=== PATIENT | male | born 1985 | race Caucasian/White ===

== ENCOUNTER 2017-10-21 09:37 | Emergency (ER) | payer OTHER ==
[2017-10-21 09:51] VITALS: BP 133/91; PULSE 60; O2SAT 99
--- NOTE | 2017-10-21 09:55 | ERPHSYRPT ---
- History of Present Illness Time Seen by Provider: 10/21/17 09:46 Source: patient, family Exam Limitations: no limitations Physician History: The patient is a 32-year-old male with his complaining that he fell about 4 feet off a ladder 2 weeks ago onto his left rib cage. He thinks he fell onto a pile of boards. His left rib cages been hurting ever since but now it is beginning to hurt more. It hurts to take a deep breath or cough. He's been taking ibuprofen without relief. He was not able to go into work today because of the pain. His past medical history is unremarkable. Occurred: other (2 weeks) Reason for Fall: lost balance, fell from height Injuries/Pain Location: chest (left side) Loss of Consciousness: no loss of consciousness Quality: sharpness Severity of Pain-Max: moderate Severity of Pain-Current: moderate Modifying Factors: Improves With: pain medication (ibuprofen) Associated Symptoms (Fall): chest pain Allergies/Adverse Reactions: No Known Drug Allergies Allergy (Verified 10/21/17 09:50) Home Medications: Carvedilol 3.125 mg [Coreg 3.125 MG] 3.125 mg PO DAILY 10/21/17 [History] Escitalopram Oxalate 10 mg [Lexapro 10 MG] 10 mg PO DAILY 10/21/17 [History] Lisinopril 10 mg [Zestril 10 MG] 10 mg PO DAILY 10/21/17 [History] Hx Tetanus, Diphtheria Vaccination/Date Given: No Hx Influenza Vaccination/Date Given: No Hx Pneumococcal Vaccination/Date Given: No - Review of Systems Constitutional: No Fever, No Chills Eyes: No Symptoms Ears, Nose, & Throat: No Symptoms Respiratory: No Cough, No Dyspnea Cardiac: Chest Pain Abdominal/Gastrointestinal: No Abdominal Pain, No Nausea, No Vomiting, No Diarrhea Genitourinary Symptoms: No Dysuria Musculoskeletal: No Back Pain, No Neck Pain Skin: No Rash Neurological: No Dizziness, No Focal Weakness, No Sensory Changes Psychological: No Symptoms Endocrine: No Symptoms Hematologic/Lymphatic: No Symptoms Immunological/Allergic: No Symptoms All Other Systems: Reviewed and Negative - Past Medical History Pertinent Past Medical History: Yes Psycho-Social History: Depression - Past Surgical History Past Surgical History: No - Social History Smoking Status: Current every day smoker Exposure to second hand smoke: No Patient Lives Alone: No - Nursing Vital Signs Nursing Vital Signs: Initial Vital Signs Pulse Rate 60 10/21/17 09:46 Respiratory Rate 18 10/21/17 09:46 Blood Pressure 133/91 10/21/17 09:46 O2 Sat by Pulse Oximetry 99 10/21/17 09:46 Pain Scale Pain Intensity 7 - [place] Coma Score Best Eye Response ([place]): (4) open spontaneously Best Verbal Response ([place]): (5) oriented Best Motor Response ([place]): (6) obeys commands Anisha Total: 15 - Physical Exam General Appearance: no apparent distress, alert Head Injury: no evidence of injury Eye Exam: PERRL/EOMI ENT Exam: airway nml Neck Exam: normal inspection, No tenderness Respiratory/Chest Exam: chest tenderness (left lateral ribs), rib tenderness ( left lateral) Cardiovascular Exam: normal heart sounds, regular rate/rhythm Gastrointestinal Exam: soft, No tenderness, No distention, No guarding, No ecchymosis Rectal Exam: not done Back Exam: normal inspection, No vertebral tenderness Extremity Exam: normal inspection, normal range of motion, pelvis stable, No deformities Neurologic Exam: alert, oriented x 3, cooperative, sensation nml, No motor deficits Skin Exam: normal color, warm, dry, No ecchymosis SpO2 Interpretation: normal - Radiology Exams Left Chest X-ray Interpretation: Reviewed by me, Teleradiologist Report (per Dr Meraz), Non- displaced Fracture (tiny lateral 5/6/7 corical rib fractures.) Chest X-ray Interpretation: Reviewed by me, Teleradiologist Report (per Dr Meraz), Other (left rib fractures reported under left rib xray.) Ordered Tests: Active Orders 24 hr Category Date Time Status CHEST 2 VIEWS (PA AND LAT) Stat Exams 10/21/17 09:55 Taken RIBS UNILATERAL Stat Exams 10/21/17 09:55 Completed Medication Summary Discontinued Medications Generic Name Dose Route Start Last Admin Trade Name Freq PRN Reason Stop Dose Admin Ketorolac Tromethamine 60 mg 10/21/17 09:55 10/21/17 10:07 Toradol 30 Mg Injection IM 10/21/17 09:56 60 mg STAT ONE Administration Ketorolac Tromethamine Confirm 10/21/17 10:04 Toradol 30 Mg Injection Administered 10/21/17 10:05 Dose 60 mg .ROUTE .STK-MED ONE - Progress Progress: unchanged Counseled pt/family regarding: diagnosis, rad results - Departure Time of Disposition: 10:57 Departure Disposition: Home Clinical Impression: Multiple fractures of ribs of left side Condition: Stable Critical Care Time: No Referrals: DAVID MURPHY MD [Primary Care Provider] - Additional Instructions: You have fractures of 3 left ribs. You were given Toradol 60 mg by IM in the ER. Take naproxen 500 mg 2 times a day as needed for pain. May also take Tylenol 1000 mg every 8 hours as needed. Avoid trauma to the left rib area until healed. Follow-up with your primary medical doctor as needed. Prescriptions: Naproxen 500 mg PO BID PRN #30 tablet.
[2017-10-21] MEDS ORDERED: TORAdol 30 mg Injection ONE (10:04)
[2017-10-21] MEDS: TORAdol 30 mg Injection IM ONE (10:07)
--- NOTE | 2017-10-21 10:48 | XRAY ---
Indication: Left lower rib pain following fall 2 weeks ago. Comparison: None 2 views of the left ribs demonstrates tiny lateral 5/6/7 cortical rib fractures. No other bony, articular, or soft tissue abnormalities.
--- NOTE | 2017-10-21 10:50 | XRAY ---
Indication: Left lower rib pain following fall 2 weeks ago. Comparison: October 07, 2017. PA/lateral chest again demonstrates normal heart and lungs. Bony thorax grossly intact with left rib fractures reported separately.
== END 2017-10-21 11:13 | disposition home or self-care (01) ==
LOC: ED 09:37
DX: S22.42XA Multiple fractures of ribs, left side, initial encounter for closed fracture (principal); W11.XXXA Fall on and from ladder, initial encounter; F32.9 Major depressive disorder, single episode, unspecified; Z72.0 Tobacco use; Z79.899 Other long term (current) drug therapy
CPT/HCPCS: 71046; 71100; 96372; 99284; J1885

== ENCOUNTER 2018-04-05 16:52 | Emergency (ER) | payer OTHER ==
[2018-04-05 17:13] VITALS: O2SAT 98
[2018-04-05] MEDS ORDERED: TORAdol 30 mg Injection IM ONE (17:41)
[2018-04-05] MEDS ORDERED: Norflex 60 MG/2 ML IM ONE (17:41)
--- NOTE | 2018-04-05 17:45 | ERPHSYRPT ---
- History of Present Illness Time Seen by Provider: 04/05/18 17:37 Source: patient Exam Limitations: no limitations Patient Subjective Stated Complaint: states lower back began hurting when he got out of the shower at 1500 today. denies any injury. states pain radiates down both legs at times. Triage Nursing Assessment: ambulated to room per self holding lower back. skin w/d, color normal. Physician History: 32-year-old white male with history of depression high blood pressure and has a history of degenerative disc disease in the past. Arrives with complaint of pain in his low back radiating across the entire low back which began when the patient got out of the shower this afternoon. Patient denies any injury. Past medical history includes depression, high blood pressure Past surgical history includes orthopedic surgery on the right shoulder Timing/Duration: today Method of Injury: other (getting out of the shower) Quality: aching Back Pain Location: lumbar spine Back Pain Radiation: buttocks, upper legs Severity of Pain-Max: moderate Severity of Pain-Current: moderate Modifying Factors: Improves With: nothing Associated Symptoms: lower back pain, No fever, No chills, No sweating, No urinary incontinence, No loss of bowel control, No constipation, No nausea, No vomiting, No problems urinating, No light-headedness, No dizziness, No numbness in legs/feet, No weakness, No sensory/motor loss, No tingling in legs/feet, No muscle spasms Previous symptoms: same symptoms as today Allergies/Adverse Reactions: No Known Drug Allergies Allergy (Verified 10/21/17 09:50) Home Medications: Carvedilol 3.125 mg [Coreg 3.125 MG] 3.125 mg PO DAILY 10/21/17 [History] Escitalopram Oxalate 10 mg [Lexapro 10 MG] 10 mg PO DAILY 10/21/17 [History] Lisinopril 10 mg [Zestril 10 MG] 10 mg PO DAILY 10/21/17 [History] Hx Tetanus, Diphtheria Vaccination/Date Given: Yes Hx Influenza Vaccination/Date Given: Yes Hx Pneumococcal Vaccination/Date Given: No - Review of Systems Constitutional: No Fever, No Chills Eyes: No Symptoms Ears, Nose, & Throat: No Symptoms Respiratory: No Cough, No Dyspnea Cardiac: No Chest Pain, No Edema, No Syncope Abdominal/Gastrointestinal: No Abdominal Pain, No Nausea, No Vomiting, No Diarrhea Genitourinary Symptoms: No Dysuria Musculoskeletal: Back Pain Skin: No Rash Neurological: No Dizziness, No Focal Weakness, No Sensory Changes Psychological: No Symptoms Endocrine: No Symptoms All Other Systems: Reviewed and Negative - Past Medical History Pertinent Past Medical History: Yes Psycho-Social History: Depression - Past Surgical History Past Surgical History: Yes Musculoskeletal: Orthopedic Surgery Other Surgical History: right shoulder - Social History Smoking Status: Current every day smoker How long have you smoked: 16 Exposure to second hand smoke: No Drug Use: none Patient Lives Alone: No - Nursing Vital Signs Nursing Vital Signs: Initial Vital Signs Temperature 98.4 F 04/05/18 16:57 Pulse Rate 69 04/05/18 16:57 Respiratory Rate 16 04/05/18 16:57 Blood Pressure 122/77 04/05/18 16:57 O2 Sat by Pulse Oximetry 98 04/05/18 16:57 Pain Scale Pain Intensity [] 10 Pain Intensity 6 - Physical Exam General Appearance: mild distress Eye Exam: PERRL/EOMI, eyes nml inspection Ears, Nose, Throat Exam: normal ENT inspection, TMs normal, pharynx normal, moist mucous membranes, No dry mucous membranes, No TM abnormal (R), No TM abnormal (L), No pharyngeal erythema Neck Exam: normal inspection, non-tender, supple, full range of motion, No meningismus, No midline tenderness Respiratory Exam: normal breath sounds, lungs clear, No respiratory distress Cardiovascular Exam: regular rate/rhythm, normal heart sounds Gastrointestinal Exam: soft, No tenderness, No mass Back Exam: other (piggyback clerk with movement and palpation low lumbar region) Extremity Exam: normal inspection, normal range of motion, No calf tenderness, No pedal edema Peripheral Pulses: dorsalis-pedis (R): 2+, dorsalis-pedis (L): 2+ Neurologic Exam: alert, oriented x 3, cooperative, network cabler II-XII nml as tested, normal mood/affect, nml station & gait, sensation nml, No motor deficits Skin Exam: normal color, warm, dry, No rash SpO2 Interpretation: normal (98%) SpO2: 98 - Course Nursing assessment & vital signs reviewed: Yes - Radiology Exams L-Spine X-ray Interpretation: Interpreted by me (straightening of lumbar spine, no fractures, no subluxation) Ordered Tests: Active Orders 24 hr Category Date Time Status IV Insertion STAT Care 04/05/18 18:45 Active LUMBAR LIMITED (2 OR 3 VIEWS) Stat Exams 04/05/18 17:41 Taken Medication Summary Discontinued Medications Generic Name Dose Route Start Last Admin Trade Name Maximilianq PRN Reason Stop Dose Admin Ketorolac Tromethamine 60 mg 04/05/18 17:41 04/05/18 17:50 Toradol 30 Mg Injection IM 04/05/18 17:42 60 mg STAT ONE Administration Ketorolac Tromethamine Confirm 04/05/18 17:47 Toradol 30 Mg Injection Administered 04/05/18 17:48 Dose 60 mg .ROUTE .STK-MED ONE Morphine Sulfate 4 mg 04/05/18 18:45 04/05/18 18:53 Morphine Sulfate 4 Mg Inj IV 04/05/18 18:46 4 mg STAT ONE Administration Morphine Sulfate Confirm 04/05/18 18:49 Morphine Sulfate 4 Mg Inj Administered 04/05/18 18:50 Dose 4 mg .ROUTE .STK-MED ONE Ondansetron HCl 4 mg 04/05/18 18:45 04/05/18 18:53 Zofran 4 Mg/2 Ml Vial IV 04/05/18 18:46 4 mg STAT ONE Administration Ondansetron HCl Confirm 04/05/18 18:49 Zofran 4 Mg/2 Ml Vial Administered 04/05/18 18:50 Dose 4 mg .ROUTE .STK-MED ONE Orphenadrine Citrate 60 mg 04/05/18 17:41 04/05/18 17:49 Norflex 60 Mg/2 Ml IM 04/05/18 17:42 60 mg STAT ONE Administration Orphenadrine Citrate Confirm 04/05/18 17:47 Norflex 60 Mg/2 Ml Administered 04/05/18 17:48 Dose 60 mg .ROUTE .STK-MED ONE - Progress Progress: improved Progress Note: 04/05/18 19:09 32-year-old white male arrives with complaint of low lumbar back pain which began after getting out of the shower, Patient states this occurred this afternoon he denies any injury, Patient with full range of motion to his extremities, Patient has an x-ray of the lumbar spine which shows spasm, I do not see any of fractures or subluxation, I've given the patient Toradol 60 mg IM and Norflex 60 mg IM. Morphine 4 mg IV. Patient states she doesn't feel whole lot better but he does not appear to be in acute distress at this time. Will go ahead and give patient 4 mg more morphine. Plan on home with Naprosyn, Flexeril, [place]. Patient to follow-up with his family doctor. - Departure Time of Disposition: 19:10 Departure Disposition: Home Clinical Impression: Lumbar back pain Lumbar strain Qualifiers: Encounter type: initial encounter Qualified Code(s): S39.012A - Strain of muscle, fascia and tendon of lower back, initial encounter Condition: Fair Critical Care Time: No Referrals: DAVID MURPHY MD [Primary Care Provider] - Instructions: Low Back Pain (DC), Sciatica (DC) Additional Instructions: Return home. Flexeril 10 mg orally 3 times a day for 5 days. Naprosyn 500 mg orally twice a day with food as needed for pain. [place] 5/325 #12 one orally every 4-6 hours as needed for pain. Follow-up with your family Dr. symptoms are worse, no better in 24-48 hours or persist longer 72 hours. Return for acute distress or for severe symptoms. Prescriptions: Cyclobenzaprine HCl [Flexeril] 10 mg PO TID #15 tablet Hydrocodone/APAP 5-325 Tab^^^ [[place] 5-325 Tablet^^^] 1 tab PO Q4-6HPRN PRN #12 tablet MDD 6 PRN Reason: Pain Naproxen 500 mg [Naprosyn 500 MG] 500 mg PO BIDPRN PRN #20 tablet PRN Reason: Pain
[2018-04-05] MEDS ORDERED: TORAdol 30 mg Injection ONE (17:47)
[2018-04-05] MEDS ORDERED: Norflex 60 MG/2 ML ONE (17:47)
[2018-04-05] MEDS ORDERED: Zofran 4 MG/2 ML VIAL IV ONE (18:45)
[2018-04-05] MEDS ORDERED: MORPHINE SULFATE 4 MG INJ IV ONE ×2 (18:45→19:08)
[2018-04-05] MEDS ORDERED: Zofran 4 MG/2 ML VIAL ONE (18:49)
[2018-04-05] MEDS ORDERED: MORPHINE SULFATE 4 MG INJ ONE ×2 (18:49→19:15)
[2018-04-05] MEDS ORDERED: NORCO 5/325 MG PO ONE (19:21)
[2018-04-05] MEDS ORDERED: NORCO 5/325 MG ONE (19:24)
[2018-04-05 19:36] VITALS: BP 123/89; PULSE 67
--- NOTE | 2018-04-06 08:44 | XRAY ---
Indication: Low back pain. No known injury. Comparison: None 3 views of the lumbar spine demonstrates 5 lumbar vertebral segments in normal alignment with vertebral body heights and disc spaces maintained. No bony, articular, or soft tissue abnormalities.
== END 2018-04-05 19:36 | disposition home or self-care (01) ==
LOC: ED 16:52
DX: M54.5 Low back pain (principal); M62.830 Muscle spasm of back; F32.9 Major depressive disorder, single episode, unspecified; Z72.0 Tobacco use
CPT/HCPCS: 36000; 72100; 96372; 96374; 96375; 96376; 99284; J1885; J2270; J2360; J2405; A9270-GY

== ENCOUNTER 2018-08-03 21:53 | Emergency (ER) | payer OTHER ==
[2018-08-03] MEDS ORDERED: Zofran 4 MG/2 ML VIAL IV ONE (22:41)
[2018-08-03] MEDS ORDERED: Hydromorphone 1 mg/ml Ampule IV ONE (22:43)
[2018-08-03] MEDS ORDERED: Sodium Chloride 0.9% 1000 ML 1,000 ML ONE (22:44)
[2018-08-03] MEDS ORDERED: Zofran 4 MG/2 ML VIAL ONE (22:44)
[2018-08-03] MEDS ORDERED: Sodium Chloride 0.9% 1000 ML 1,000 ML IV SCH (22:45)
--- NOTE | 2018-08-03 22:47 | ERPHSYRPT ---
- History of Present Illness Time Seen by Provider: 08/03/18 22:30 Source: patient Exam Limitations: clinical condition Patient Subjective Stated Complaint: c/o headache since 0800, which in turn makes his chest and stomach hurt, nausea, no vomiting Triage Nursing Assessment: lungs clear, heart tones reg, abd soft with active bs x4 quad, no edema. pt c/o headache mostly on left side of head, has taken 2 doses of imitrex 100 today and ibu 800 mg with no relief. Physician History: PATIENT WITH A HISTORY OF CHRONIC HEADACHES FOR 3 YEARS, PROGRESSIVELY WORSE X 2 -3 WEEKS, HAS HEADACHE DISCOMFORT 2-3 TIMES WEEKLY ASSOCIATED WITH PHOTOPHOBIA. HAS LEFT SIDED HEADACHE PAIN SCALE 6/10, THROBBING DISCOMFORT. DENIES NAUSEA, EMESIS, BLURRED VISION, NECK STIFFNESS OR FEVER. HAS OCCASIONAL CHEST PAIN WITH HIS HEADACHES. DENIES DYSPNEA, DIAPHOREIS OR PALPITATIONS. Timing/Duration: week(s) Quality: throbbing Head Pain Location: temporal, parietal Severity of Pain-Max: moderate Severity of Pain-Current: moderate Recent Head Trauma: occasional headaches Modifying Factors: Improves With: exposure to light Associated Symptoms: sensitive to light Previous symptoms: same symptoms as today Allergies/Adverse Reactions: No Known Drug Allergies Allergy (Verified 10/21/17 09:50) Home Medications: Carvedilol 3.125 mg [Coreg 3.125 MG] 3.125 mg PO DAILY 10/21/17 [History] Lisinopril 10 mg [Zestril 10 MG] 20 mg PO DAILY 10/21/17 [History] Ibuprofen 800 mg PO TID PRN PRN 08/03/18 [History] Omeprazole 20 mg PO DAILY 08/03/18 [History] Sertraline HCl 75 mg PO DAILY 08/03/18 [History] Sumatriptan Succinate [Imitrex] 100 mg PO [id number] PRN 08/03/18 [History] Hx Tetanus, Diphtheria Vaccination/Date Given: Yes Hx Influenza Vaccination/Date Given: No Hx Pneumococcal Vaccination/Date Given: No Immunizations Up to Date: Yes - Review of Systems Constitutional: No Symptoms, No Fever, No Chills Eyes: No Symptoms Ears, Nose, & Throat: No Symptoms Respiratory: No Symptoms, No Cough, No Dyspnea Cardiac: Chest Pain, No Edema, No Syncope Abdominal/Gastrointestinal: No Symptoms, No Abdominal Pain, No Nausea, No Vomiting, No Diarrhea Genitourinary Symptoms: No Symptoms, No Dysuria Musculoskeletal: No Symptoms, No Back Pain, No Neck Pain Skin: No Rash Neurological: Headache, No Dizziness, No Focal Weakness, No Sensory Changes Psychological: No Symptoms Endocrine: No Symptoms All Other Systems: Reviewed and Negative - Past Medical History Pertinent Past Medical History: Yes Neurological History: Migraines ENT History: No Pertinent History Cardiac History: No Pertinent History, Hypertension Respiratory History: No Pertinent History Endocrine Medical History: Hypoglycemia Musculoskeletal History: Fractures GI Medical History: GERD, Gallbladder Disease History: No Pertinent History Psycho-Social History: Depression Male Reproductive Disorders: No Pertinent History - Past Surgical History Past Surgical History: Yes Neuro Surgical History: No Pertinent History Cardiac: No Pertinent History Respiratory: No Pertinent History Gastrointestinal: No Pertinent History Genitourinary: No Pertinent History Musculoskeletal: No Pertinent History, Orthopedic Surgery Male Surgical History: No Pertinent History Other Surgical History: right shoulder - Social History Smoking Status: Current every day smoker How long have you smoked: yrs Exposure to second hand smoke: Yes Drug Use: none Patient Lives Alone: No - Nursing Vital Signs Nursing Vital Signs: Initial Vital Signs Temperature 97.8 F 08/03/18 22:14 Pulse Rate 62 08/03/18 22:14 Respiratory Rate 18 08/03/18 22:14 Blood Pressure 152/95 08/03/18 22:14 O2 Sat by Pulse Oximetry 98 08/03/18 22:14 Pain Scale Pain Intensity 6 - Physical Exam General Appearance: no apparent distress Eye Exam: PERRL/EOMI Ears, Nose, Throat Exam: normal ENT inspection, moist mucous membranes, other ( THERE IS NO PERCUSSION TENDERNESS OVER MAXILLARY OR FRONTAL SINUSES) Neck Exam: normal inspection, non-tender, supple, full range of motion, No meningismus Respiratory Exam: normal breath sounds, lungs clear Cardiovascular Exam: regular rate/rhythm, normal heart sounds Gastrointestinal/Abdominal Exam: soft, normal bowel sounds, No tenderness, No distention Back Exam: normal inspection, normal range of motion Extremity Exam: normal inspection, normal range of motion Mental Status Exam: alert, oriented x 3, cooperative feed in worker Exam: normal speech, PERRL, No facial droop Coordination/Gait Exam: normal cerebellar function Motor/Sensory Exam: no motor deficit, no sensory deficit DTR Exam: bicep (R): 2+, bicep (L): 2+, tricep (R): 2+, tricep (L): 2+, knee (R) : 2+, knee (L): 2+, ankle (R): 2+, ankle (L): 2+ Skin Exam: normal color, warm, dry, No rash Lymphatic Exam: adenopathy SpO2 Interpretation: normal SpO2: 98 O2 Delivery: Room Air - CT Exams Head CT Interpretation: Discussed w/radiologist, No/Intracranial Hemorrhag (MUCOSAL THICKENING IN THE ETHMOID AND MAXILLARY SINUSES) Ordered Tests: Active Orders 24 hr Category Date Time Status EKG-ER Only STAT Care 08/03/18 22:50 Active HEAD WITHOUT CONTRAST [CT] Stat Exams 08/03/18 22:42 Taken BMP Stat Lab 08/03/18 22:30 Completed CBC W DIFF Stat Lab 08/03/18 22:30 Completed ETHYL ALCOHOL Stat Lab 08/03/18 22:30 Completed MAGNESIUM Stat Lab 08/03/18 22:30 Completed TROPONIN Q3H Lab 08/03/18 22:30 Completed TROPONIN Q3H Lab 08/04/18 02:00 Ordered TROPONIN Q3H Lab 08/04/18 05:00 Ordered TROPONIN Q3H Lab 08/04/18 08:00 Ordered TROPONIN Q3H Lab 08/04/18 11:00 Ordered Medication Summary Generic Name Dose Route Start Last Admin Trade Name Freq PRN Reason Stop Dose Admin Sodium Chloride 1,000 mls @ 200 mls/hr 08/03/18 22:45 08/03/18 22:48 Sodium Chloride 0.9% 1000 Ml IV 09/02/18 22:44 200 mls/hr .Q5H BRANDON Administration Discontinued Medications Generic Name Dose Route Start Last Admin Trade Name Freq PRN Reason Stop Dose Admin Hydromorphone HCl 1 mg 08/03/18 22:43 08/03/18 22:54 Hydromorphone 1 Mg/Ml Ampule IV 08/03/18 22:44 1 mg STAT ONE Administration Hydromorphone HCl Confirm 08/03/18 22:53 Hydromorphone 1 Mg/Ml Ampule Administered 08/03/18 22:54 Dose 1 mg .ROUTE .STK-MED ONE Ceftriaxone Sodium/Dextrose 1 g in 50 mls @ 100 mls/hr 08/04/18 00:03 01:03 Rocephin 1 Gm-D5w 50 Ml Bag IV 08/04/18 00:32 Infused STAT STA Infusion Ceftriaxone Sodium/Dextrose Confirm 08/04/18 00:10 Rocephin 1 Gm-D5w 50 Ml Bag Administered 08/04/18 00:11 Dose 1 g in 50 mls @ ud IV .STK-MED ONE Ketorolac Tromethamine 30 mg 08/04/18 00:03 08/04/18 00:11 Toradol 30 Mg Injection IV 08/04/18 00:04 30 mg STAT ONE Administration Ketorolac Tromethamine Confirm 08/04/18 00:10 Toradol 30 Mg Injection Administered 08/04/18 00:11 Dose 30 mg .ROUTE .STK-MED ONE Ondansetron HCl 4 mg 08/03/18 22:41 08/03/18 22:48 Zofran 4 Mg/2 Ml Vial IV 08/03/18 22:42 4 mg STAT ONE Administration Ondansetron HCl Confirm 08/03/18 22:44 Zofran 4 Mg/2 Ml Vial Administered 08/03/18 22:45 Dose 4 mg .ROUTE .STK-MED ONE Lab/Rad Data: Laboratory Result Diagrams 08/03/18 22:30 08/03/18 22:30 Laboratory Results 08/03/18 08/03/18 08/03/18 Range/Units 22:30 22:30 22:30 WBC 12.6 H (4.0-10.5) K/mm3 RBC 5.29 (4.1-5.6) M/mm3 Hgb 16.4 (12.5-18.0) gm/dl Hct 47.3 (42-50) % MCV 89.4 (78-100) fl MCH 31.0 (26-32) pg MCHC 34.7 (32-36) g/dl RDW 12.5 (11.5-14.0) % Plt Count 202 (150-450) K/mm3 MPV 10.0 H (6-9.5) fl Gran % 56.6 (36.0-66.0) % Eos # (Auto) 0.42 (0-0.5) Absolute Lymphs (auto) 3.86 (1.0-4.6) Absolute Monos (auto) 1.14 (0.0-1.3) Lymphocytes % 30.7 (24.0-44.0) % Monocytes % 9.1 (0.0-12.0) % Eosinophils % 3.3 (0.00-5.0) % Basophils % 0.3 (0.0-0.4) % Absolute Granulocytes 7.13 H (1.4-6.9) Basophils # 0.04 (0-0.4) Sodium 140 (137-145) mmol/L Potassium 3.7 (3.5-5.1) mmol/L Chloride 104 (98-107) mmol/L Carbon Dioxide 26 (22-30) mmol/L Anion Gap 14.0 (5-15) MEQ/L BUN 12 (9-20) mg/dL Creatinine 0.63 L (0.66-1.25) mg/dL Estimated GFR > 60.0 ML/MIN Glucose 98 (74-106) mg/dL Calcium 9.7 (8.4-10.2) mg/dL Magnesium 2.0 (1.6-2.3) mg/dL Troponin I < 0.012 (0.000-0.034) ng/mL Ethyl Alcohol < 10 (0-10) mg/dL - Progress Progress: improved Progress Note: 08/03/18 23:07 IV NORMAL SALINE 200ML/HR, ZOFRAN 4MG, DILAUDID 1MG IV, MINIMAL IMPROVEMENT 08/04/18 00:06, TORADOL 30MG IV, ROCEPHIN 1GM IVPB FOR SINUSITIS Counseled pt/family regarding: lab results, diagnosis, need for follow-up, rad results - Departure Departure Disposition: Home Clinical Impression: ACUTE SINUSITIS, CHRONIC CEPHALGIA Condition: Stable Critical Care Time: No Referrals: DAVID MURPHY MD [Primary Care Provider] - Additional Instructions: FIORICET 50-325-40, 1 TABLET EVERY 6 HOURS NEEDED. ANTIBIOTIC CEFDINIR 300MG TWICE DAILY FOR 10 DAYS. CONSULT YOUR PRIMARY CARE PROVIDER FOR EVALUATION, REFERRAL TO NEUROLOGIST. Prescriptions: Cefdinir [Omnicef] 300 mg PO BID #20 capsule
[2018-08-03] MEDS ORDERED: Hydromorphone 1 mg/ml Ampule ONE (22:53)
[2018-08-03 23:04] LABS: BASOPHIL % 0.3 % (0.0-0.4); Basophil (Absolute #) 0.04 (0-0.4); Eosinophil % 3.3 % (0.00-5.0); Eosinophil (Absolute #) 0.42 (0-0.5); Granulocyte Absolute (ANC) 7.13 (1.4-6.9); Granulocytes % 56.6 % (36.0-66.0); Hematocrit 47.3 % (42-50); Hemoglobin 16.4 gm/dl (12.5-18.0); Lymphocyte (Absolute #) 3.86 (1.0-4.6); Lymphocytes % 30.7 % (24.0-44.0); Mean Cell Volume 89.4 fl (78-100); Mean Corpuscular Hgb Concent. 34.7 g/dl (32-36); Monocyte (Absolute #) 1.14 (0.0-1.3); Monocytes % 9.1 % (0.0-12.0); Platelet Count 202 K/mm3 (150-450); Red Blood Count 5.29 M/mm3 (4.1-5.6); Red Cell Distribution Width 12.5 % (11.5-14.0); White Blood Count 12.6 K/mm3 (4.0-10.5)
[2018-08-03 23:12] LABS: BLOOD UREA NITROGEN 12 mg/dL (9-20); CHLORIDE 104 mmol/L (98-107); Calcium 9.7 mg/dL (8.4-10.2); Carbon Dioxide 26 mmol/L (22-30); Creatinine 1 0.63 mg/dL (0.66-1.25); Glucose 98 mg/dL (74-106); Potassium 3.7 mmol/L (3.5-5.1); SODIUM 140 mmol/L (137-145)
[2018-08-03 23:13] LABS: ETHYL ALCOHOL < 10 mg/dL (0-10)
[2018-08-04] MEDS ORDERED: ROCEPHIN 1 Gm-D5w 50 ml Bag** 1 G/50 ML IVPB IV STA (00:03)
[2018-08-04] MEDS ORDERED: TORAdol 30 mg Injection IV ONE (00:03)
[2018-08-04] MEDS ORDERED: TORAdol 30 mg Injection ONE (00:10)
[2018-08-04] MEDS ORDERED: ROCEPHIN 1 Gm-D5w 50 ml Bag** 1 G/50 ML IVPB IV ONE (00:10)
[2018-08-04 01:03] VITALS: BP 127/77; PULSE 57
[2018-08-04 01:05] VITALS: O2SAT 98
[2018-08-04] MEDS ORDERED: Norco 10/325 MG Tablet PO ONE (01:05)
[2018-08-04] MEDS ORDERED: Norco 10/325 MG Tablet ONE (01:08)
--- NOTE | 2018-08-05 11:42 | XRAY ---
Exam: CT of the head without IV contrast from 08/03/2018. CTDI: 69.52 Comparison: CT of the head without IV contrast from 06/15/2006. Indication: 33-year-old male with left-sided headaches 14 hours. Complains of 6 migraine headaches in last 2 weeks, no known injury, no history of prior surgery. Technique: Non-IV contrast axial images were obtained through the brain. Reconstructed coronal and sagittal images were created and reviewed. Findings: The ventricles appear of normal size. No focal mass effect or midline shift is seen. No acute intracranial bleed or abnormal extra-axial fluid collection is seen. The quinones matter-white matter junctions appear normal. No low attenuation territorial infarct is seen. The cortical sulci and basilar cisterns appear unremarkable. The calvarium of the skull reveals no fracture or other focal bone lesion. I note mucoperiosteal soft tissue density within the left frontal-ethmoid recess. There is also moderate mucosal thickening within the ethmoid sinuses bilaterally, left greater than right. Focal mucosal thickening is seen at the upper anterior medial aspect of the left maxillary sinus and the medial aspect of the right maxillary sinus. The soft tissue density within the left maxillary sinus appears to block the infundibulum of the osteomeatal complex on the left. I see no paranasal sinus air-fluid levels. The sphenoid sinus appears essentially unremarkable. The mastoid air cells are clear without effusion. The middle ear cavities appear grossly unremarkable. Impression: 1. No acute intracranial bleed, mass effect, or other acute intracranial process is seen. 2. Chronic appearing paranasal sinus disease within the left frontal-ethmoid recess, both ethmoid sinuses (left greater than right), and the upper medial aspect of both maxillary sinuses (again, left greater than right). This is consistent with chronic sinus disease/sinusitis. The infundibulum of the left ostiomeatal complex is blocked by soft tissue density on the coronal images. No air-fluid levels are seen.
== END 2018-08-04 01:20 | disposition home or self-care (01) ==
LOC: ED 21:53
DX: J01.90 Acute sinusitis, unspecified (principal); R51 Headache
CPT/HCPCS: 36415; 70450; 80048; 80307; 83735; 84484; 85025; 93005; 96360; 96361; 96365; 96374; 96375; 99284; J0696; J1170; J1885; J2405; A9270-GY; G0480

== ENCOUNTER 2018-08-26 05:49 | Day surgery (SDC) | payer OTHER ==
[2018-08-26] MEDS ORDERED: Lactated Ringers 1,000 ML IV SCH (06:30)
[2018-08-26 09:20] VITALS: BP 133/92; PULSE 67; O2SAT 99
--- NOTE | 2018-08-26 11:15 | OP ---
SURGERY DATE: 08/26/18 SURGERY TIME: 804 PREOPERATIVE DIAGNOSIS: 1. ABDOMINAL PAIN. 2. CHRONIC DIARRHEA. POSTOPERATIVE DIAGNOSIS: 1. NORMAL EGD. 2. NORMAL COLONOSCOPY. PROCEDURE: 1. EGD. 2. Colonoscopy. SPECIMENS: 1. There were 2 cold forceps biopsies from the duodenum for celiac and 2 random cold forcep biopsies from the sigmoid colon. ESTIMATED BLOOD LOSS: Minimal. SURGEON: Dr. Robby Sanchez. ANESTHESIA: MAC by Eliot Graves CRNA. DESCRIPTION OF PROCEDURE: After informed written consent was obtained, the patient was taken to the endoscopy suite. He underwent monitored anesthesia and a bite block was inserted. The endoscope was inserted in the posterior oropharynx and under direct visualization, the esophagus was traversed. There were no obvious mucosal abnormalities. The stomach had a normal rugated gastric mucosa free of any lesions or defects. The pylorus was traversed and the duodenum likewise had a normal appearance. Two random cold forceps biopsies were taken from the duodenum and sent for celiac testing. Upon withdrawal, the remainder of the exam had a normal appearance. The scope was removed and the scopes were switched. Digital rectal exam showed normal sphincter tone and no internal lesions. The scope was inserted in the rectum and sequentially the entire colonic mucosa was traversed. The level of the cecum was reached and verified with direct visualization of the ileocecal valve. Upon withdrawal, careful mucosal inspection revealed no gross abnormalities. Two random biopsies were taken from the sigmoid colon sent for pathology testing. Prior to withdrawal, retroflexion showed no obvious internal lesions. The scope was removed and the patient was transferred to the recovery room in good condition. He will follow-up in a week for pathology results.
== END 2018-08-26 09:29 | disposition home or self-care (01) ==
LOC: SDC 05:49
PROVIDERS: ATTEND Family Medicine
DX: R10.9 Unspecified abdominal pain (principal); R19.7 Diarrhea, unspecified

== ENCOUNTER 2018-08-26 21:33 | Emergency (ER) | payer OTHER ==
[2018-08-26] MEDS ORDERED: Hydromorphone 1 mg/ml Ampule IV ONE (21:42)
[2018-08-26] MEDS ORDERED: Sodium Chloride 0.9% 1000 ML 1,000 ML IV STA (21:42)
[2018-08-26] MEDS ORDERED: Zofran 4 MG/2 ML VIAL IV ONE (21:42)
--- NOTE | 2018-08-26 21:42 | ERPHSYRPT ---
- History of Present Illness Time Seen by Provider: 08/26/18 21:41 Historian: patient, family Exam Limitations: no limitations Physician History: 33 y/o white male presents with generalized abd pain post colonoscopy today. Timing/Duration: today Quality: cramping, sharpness Abdominal Pain Onset Location: generalized abdomen Allergies/Adverse Reactions: No Known Drug Allergies Allergy (Verified 08/26/18 06:17) Home Medications: Omeprazole 20 mg PO DAILY 08/03/18 [History] Sertraline HCl 75 mg PO DAILY 08/03/18 [History] Sumatriptan Succinate [Imitrex] 100 mg PO [id number] PRN 08/03/18 [History] Topiramate 25 mg [Topamax 25 MG] 25 mg PO DAILY 08/17/18 [History] Carvedilol 3.125 mg [Coreg 3.125 MG] 3.125 mg PO DAILY 08/26/18 [History] Lisinopril 20 mg [Zestril 20 MG] 20 mg PO DAILY 08/26/18 [History] Hx Tetanus, Diphtheria Vaccination/Date Given: Yes Hx Influenza Vaccination/Date Given: No Hx Pneumococcal Vaccination/Date Given: No - Review of Systems Constitutional: No Symptoms Eyes: No Symptoms Ears, Nose, & Throat: No Symptoms Respiratory: No Symptoms Cardiac: No Symptoms Abdominal/Gastrointestinal: Abdominal Pain (generalized), No Nausea, No Vomiting , No Diarrhea Genitourinary Symptoms: No Symptoms Musculoskeletal: No Symptoms Skin: No Symptoms Neurological: No Symptoms Psychological: No Symptoms Endocrine: No Symptoms Hematologic/Lymphatic: No Symptoms Immunological/Allergic: No Symptoms All Other Systems: Reviewed and Negative - Past Medical History Pertinent Past Medical History: Yes Neurological History: Migraines ENT History: No Pertinent History Cardiac History: Hypertension Respiratory History: No Pertinent History Endocrine Medical History: Hypoglycemia Musculoskeletal History: Fractures GI Medical History: GERD, Gallbladder Disease History: No Pertinent History Psycho-Social History: Depression Male Reproductive Disorders: No Pertinent History - Past Surgical History Past Surgical History: Yes Neuro Surgical History: No Pertinent History Cardiac: No Pertinent History Respiratory: No Pertinent History Gastrointestinal: No Pertinent History Genitourinary: No Pertinent History Musculoskeletal: Orthopedic Surgery Male Surgical History: No Pertinent History Other Surgical History: right shoulder - Social History Smoking Status: Current every day smoker How long have you smoked: age 15 Exposure to second hand smoke: Yes Drug Use: none Patient Lives Alone: No - Nursing Vital Signs Nursing Vital Signs: Initial Vital Signs Temperature 98.0 F 08/26/18 21:39 Pulse Rate 87 08/26/18 21:39 Respiratory Rate 16 08/26/18 21:39 Blood Pressure 146/105 08/26/18 21:39 O2 Sat by Pulse Oximetry 97 08/26/18 21:39 Pain Scale Pain Intensity 9 - Physical Exam General Appearance: mild distress, alert, anxiety Eye Exam: PERRL/EOMI, eyes nml inspection Ears, Nose, Throat Exam: normal ENT inspection, moist mucous membranes Neck Exam: normal inspection, non-tender, supple, full range of motion Respiratory Exam: normal breath sounds, lungs clear, airway intact, No chest tenderness, No respiratory distress Cardiovascular Exam: regular rate/rhythm, normal heart sounds, normal peripheral pulses Gastrointestinal/Abdomen Exam: soft, normal bowel sounds, tenderness (mild diffuse), No distention, No guarding, No rebound Rectal Exam: not done Back Exam: normal inspection, normal range of motion, No CVA tenderness, No vertebral tenderness Extremity Exam: normal inspection, normal range of motion, pelvis stable Neurologic Exam: alert, oriented x 3, cooperative, health care law specialist II-XII nml as tested Skin Exam: normal color, warm, dry Lymphatic Exam: No adenopathy SpO2 Interpretation: normal O2 Delivery: Room Air Ordered Tests: Active Orders 24 hr Category Date Time Status IV Insertion STAT Care 08/26/18 21:42 Active ABDOMEN AND PELVIS W/0 CONTRAS [CT] Stat Exams 08/26/18 21:42 Taken AMYLASE Stat Lab 08/26/18 22:15 Completed CBC W DIFF Stat Lab 08/26/18 22:15 Completed CMP Stat Lab 08/26/18 22:15 Completed LIPASE Stat Lab 08/26/18 22:15 Completed Lactic Acid Stat Lab 08/26/18 22:25 Completed Manual Differential NC Stat Lab 08/26/18 22:15 Completed Medication Summary Generic Name Dose Route Start Last Admin Trade Name Freq PRN Reason Stop Dose Admin Dicyclomine HCl 20 mg 08/27/18 23:01 08/26/18 23:15 Bentyl 20 Mg PO 08/27/18 23:02 20 mg STAT ONE Administration Discontinued Medications Generic Name Dose Route Start Last Admin Trade Name Freq PRN Reason Stop Dose Admin Dicyclomine HCl 10 mg 08/27/18 23:01 Bentyl 20 Mg PO 08/27/18 23:02 STAT ONE Dicyclomine HCl Confirm 08/26/18 23:05 Bentyl 20 Mg Administered 08/26/18 23:06 Dose 20 mg .ROUTE .STK-MED ONE Hydromorphone HCl 1 mg 08/26/18 21:42 08/26/18 22:19 Hydromorphone 1 Mg/Ml Ampule IV 08/26/18 21:43 1 mg STAT ONE Administration Hydromorphone HCl Confirm 08/26/18 22:14 Hydromorphone 1 Mg/Ml Ampule Administered 08/26/18 22:15 Dose 1 mg .ROUTE .STK-MED ONE Sodium Chloride 1,000 mls @ 999 mls/hr 08/26/18 21:42 08/26/18 22:20 Sodium Chloride 0.9% 1000 Ml IV 08/26/18 22:42 999 mls/hr .Q1H1M STA Administration Sodium Chloride Confirm 08/26/18 22:15 Sodium Chloride 0.9% 1000 Ml Administered 08/26/18 22:16 Dose 1,000 mls @ ud .ROUTE .STK-MED ONE Lorazepam 0.5 mg 08/26/18 23:00 08/26/18 23:15 Ativan 2 Mg/1 Ml Vial IV 08/26/18 23:01 0.5 mg STAT ONE Administration Lorazepam Confirm 08/26/18 23:05 Ativan 2 Mg/1 Ml Vial Administered 08/26/18 23:06 Dose 2 mg .ROUTE .STK-MED ONE Ondansetron HCl 4 mg 08/26/18 21:42 08/26/18 22:19 Zofran 4 Mg/2 Ml Vial IV 08/26/18 21:43 4 mg STAT ONE Administration Ondansetron HCl Confirm 08/26/18 22:14 Zofran 4 Mg/2 Ml Vial Administered 08/26/18 22:15 Dose 4 mg .ROUTE .STK-MED ONE Lab/Rad Data: Laboratory Result Diagrams 08/26/18 22:15 08/26/18 22:15 Laboratory Results 0608/26/18 08/26/18 Range/Units 22:25 22:15 22:15 WBC 18.0 H (4.0-10.5) K/mm3 RBC 4.95 (4.1-5.6) M/mm3 Hgb 15.4 (12.5-18.0) gm/dl Hct 43.9 (42-50) % MCV 88.7 (78-100) fl MCH 31.1 (26-32) pg MCHC 35.1 (32-36) g/dl RDW 12.3 (11.5-14.0) % Plt Count 209 (150-450) K/mm3 MPV 9.6 H (6-9.5) fl Sodium 140 (137-145) mmol/L Potassium 3.5 (3.5-5.1) mmol/L Chloride 106 (98-107) mmol/L Carbon Dioxide 23 (22-30) mmol/L Anion Gap 13.9 (5-15) MEQ/L BUN 12 (9-20) mg/dL Creatinine 0.75 (0.66-1.25) mg/dL Estimated GFR > 60.0 ML/MIN Glucose 98 (74-106) mg/dL Lactic Acid 1.2 (0.4-2.0) Calcium 9.2 (8.4-10.2) mg/dL Total Bilirubin 0.30 (0.2-1.3) mg/dL AST 21 (17-59) U/L ALT 22 (0-50) U/L Alkaline Phosphatase 74 (38-126) U/L Serum Total Protein 7.0 (6.3-8.2) g/dL Albumin 4.1 (3.5-5.0) g/dL Amylase 61 (30-110) U/L Lipase 69 (23-300) U/L - Progress Progress: improved, pain not gone completely, re-examined Progress Note: 08/26/18 22:37 ct scan abd/pelvis-no acute process. no free air. 08/26/18 23:24 nausea gone. Counseled pt/family regarding: lab results, diagnosis, need for follow-up, rad results - Departure Departure Disposition: Home Clinical Impression: Abdominal cramping Condition: Stable Critical Care Time: No Referrals: DAVID MURPHY MD [Primary Care Provider] - Additional Instructions: clear liquids for 12 to 24 hours. slowly advance diet. avoid fatty, greasy, spicy foods. avoid nicotine, caffeine and alcohol. follow up with primary doctor for further management. Prescriptions: Dicyclomine HCl 20 mg [Bentyl 20 mg] 20 mg PO TID PRN #10 tablet PRN Reason: Mild To Moderate Pain
[2018-08-26] MEDS ORDERED: Zofran 4 MG/2 ML VIAL ONE (22:14)
[2018-08-26] MEDS ORDERED: Hydromorphone 1 mg/ml Ampule ONE (22:14)
[2018-08-26] MEDS ORDERED: Sodium Chloride 0.9% 1000 ML 1,000 ML ONE (22:15)
[2018-08-26 22:17] LABS: Hematocrit 43.9 % (42-50); Hemoglobin 15.4 gm/dl (12.5-18.0); Mean Cell Volume 88.7 fl (78-100); Mean Corpuscular Hemoglobin 31.1 pg (26-32); Mean Corpuscular Hgb Concent. 35.1 g/dl (32-36); Mean Platelet Volume 9.6 fl (6-9.5); Platelet Count 209 K/mm3 (150-450); Red Blood Count 4.95 M/mm3 (4.1-5.6); Red Cell Distribution Width 12.3 % (11.5-14.0)
[2018-08-26 22:30] LABS: ALBUMIN 4.1 g/dL (3.5-5.0); ALKALINE PHOSPHATASE 74 U/L (38-126); AMYLASE 61 U/L (30-110); ANION GAP 13.9 MEQ/L (5-15); BLOOD UREA NITROGEN 12 mg/dL (9-20); CHLORIDE 106 mmol/L (98-107); Calcium 9.2 mg/dL (8.4-10.2); Carbon Dioxide 23 mmol/L (22-30); Creatinine 1 0.75 mg/dL (0.66-1.25); Glucose 98 mg/dL (74-106); LIPASE 69 U/L (23-300); Potassium 3.5 mmol/L (3.5-5.1); SGOT/AST 21 U/L (17-59); SGPT/ALT 22 U/L (0-50); SODIUM 140 mmol/L (137-145)
[2018-08-26] MEDS ORDERED: Ativan 2 MG/1 ML VIAL IV ONE (23:00)
[2018-08-26 23:04] VITALS: PULSE 75
[2018-08-26] MEDS ORDERED: Ativan 2 MG/1 ML VIAL ONE (23:05)
[2018-08-26] MEDS ORDERED: BENTYL 20 MG ONE (23:05)
[2018-08-26 23:49] VITALS: BP 123/83; O2SAT 95
[2018-08-27 00:47] LABS: Eosinophil 3 % (0.00-3.0); Lymphocytes 13 % (24-44); Monocyte 6 % (0.0-12.0); Neutrophils 78 % (36.-66.); Total Cells Counted 100
[2018-08-27 00:48] LABS: Platelet Estimate NORMAL (NORMAL)
--- NOTE | 2018-08-27 09:01 | XRAY ---
Indication: Abdomen pain. Status post colonoscopy. Multiple contiguous axial images obtained through the abdomen and pelvis without contrast as ordered. Comparison: April 13, 2018. Lung bases remain clear. Heart is not enlarged. Stomach is distended with food/fluid. Noncontrasted stomach and bowel loops appear nonobstructed. Normal appendix. Mild scattered colonic diverticulosis. Junction of the descending and sigmoid colon now demonstrates mild wall thickening with minimal pericolonic stranding favoring focal diverticulitis/colitis. No free fluid/air. Gallbladder contracted without gallstones. Stable small left renal cyst. Remaining liver, pancreas, spleen, adrenal glands, kidneys, ureters, bladder, and aorta appear unremarkable for noncontrast exam. Osseous structures intact. No ventral or inguinal hernias. Impression: 1. New mild wall thickening and minimal pericolonic stranding junction of descending and sigmoid colon favoring focal diverticulitis/colitis. No complications. 2. Incidental colonic diverticulosis and stable left renal cyst Comment: Preliminary interpretation was made by [facility] does not reported findings of the colon. Telephone report given to Dr. Christiansen in the ER at 0854 hours on August 27, 2018. CT DI 23.64
[2018-08-27] MEDS ORDERED: BENTYL 20 MG PO ONE ×2 (23:01)
== END 2018-08-26 23:51 | disposition home or self-care (01) ==
LOC: ED 21:33
DX: R10.84 Generalized abdominal pain (principal); I10 Essential (primary) hypertension; Z79.899 Other long term (current) drug therapy; F17.200 Nicotine dependence, unspecified, uncomplicated
CPT/HCPCS: 36000; 36415; 74176; 80053; 82150; 83605; 83690; 85025; 96360; 96374; 96375; 99284; J1170; J2060; J2405; A9270-GY

== ENCOUNTER 2018-10-19 08:54 | Day surgery (SDC) | payer OTHER ==
[~2018-10-19 08:54] MED LIST: DIPRIVAN 200 MG/20 ML IV ONE; Lactated Ringers 1,000 ML IV ONE; Lactated Ringers 1,000 ML IV SCH; MEFOXIN 2 GM PREMIX** 2 GM/50 ML ML IV ONE; Quelicin Fliptop 200 MG/10 ML ONE; SUBLIMAZE 100 MCG/2 ML ONE; Sensorcaine 0.25% 10 ML ONE; Zemuron 100 MG/10 ML ONE
[2018-10-19] MEDS ORDERED: Lactated Ringers 1,000 ML IV ONE (09:09)
[2018-10-19] MEDS ORDERED: MEFOXIN 2 GM PREMIX** 2 GM/50 ML ML IV ONE (09:09)
--- NOTE | 2018-10-19 09:48 | HP ---
AMENDED REPORT: DATE OF SURGERY: 10/19/2018 HISTORY OF PRESENT ILLNESS: The patient is a 33 year-old who for a while right upper quadrant pain associated with nausea, vomiting and some loose stools. No specific food trigger. He had question of polyp on ultrasound. He had some biliary colic and chronic cholecystitis. He had endoscopy by Dr. Sanchez in the past. Ultrasound showed question of polyp. PAST MEDICAL HISTORY: Hypertension. PAST SURGICAL HISTORY: He denied any prior abdominal surgeries. MEDICATIONS: Omeprazole, Sertraline, Sumatriptan, topiramate, carvedilol, lisinopril. ALLERGIES: NKDA. FAMILY HISTORY: Negative. SOCIAL HISTORY: One pack per day smoker, does drink some alcohol denies abuse. REVIEW OF SYSTEMS: Fourteen systems reviewed per admission assessment. No chest pain or palpitations other systems negative or noncontributory as above and per preadmission questionnaire. PHYSICAL EXAMINATION: GENERAL: No acute distress. HEENT: Sclerae nonicteric. NECK: No JVD. CHEST: Equal excursion, nonlabored breathing. CVS: Regular rate and rhythm. ABDOMEN: Soft, some mild tenderness right upper quadrant. No peritoneal signs. EXTREMITIES: No significant edema. NEURO: Alert, moving extremities symmetrically. No gross motor deficits noted. IMPRESSION: Symptomatic biliary colic, question gallbladder problem versus nonmobile stone, also chronic cholelithiasis. I feel the patient will benefit from cholecystectomy. Risks and benefits explained in detail including bleeding or infection, risk of trocar injury or hernia, small risk of bowel, bladder or blood vessel injury, small risk of bile leak, bile duct injury, retained stone or sludge possibly requiring further procedure either open or ERCP, general risk of anesthesia, deep venous thrombosis, pulmonary embolism, pneumonia, perioperative risk of aches, pains, bloating, constipation and/or loose stools possibly even chronic in nature, possibility the procedure may not improve his symptoms and may need further work up and/or testing, endoscopic ultrasound or other studies, procedures or referrals. He understands and agrees to the planned procedure, will proceed with outpatient laparoscopic cholecystectomy with possible open.
[2018-10-19] MEDS ORDERED: ATROPINE SULFATE 1MG ONE (10:33)
[2018-10-19] MEDS ORDERED: ROBINUL ONE (10:33)
[2018-10-19] MEDS ORDERED: Decadron 4 MG INJ ONE (10:40)
[2018-10-19] MEDS ORDERED: TORAdol 30 mg Injection ONE (10:40)
[2018-10-19] MEDS ORDERED: BRIDION 200MG/2ML IV ONE (10:40)
[2018-10-19] MEDS ORDERED: Zofran 4 MG/2 ML VIAL ONE (10:40)
[2018-10-19] MEDS ORDERED: Zemuron 100 MG/10 ML ONE (10:43)
[2018-10-19] MEDS ORDERED: DILAUDID 2 MG INJECTION ONE (11:06)
[2018-10-19] MEDS ORDERED: SUBLIMAZE 100 MCG/2 ML ONE (11:13)
--- NOTE | 2018-10-19 11:58 | OP ---
SURGERY DATE/TIME: 10/19/2018 1019 PREOPERATIVE DIAGNOSIS: Question of gallbladder polyp on ultrasound, question of chronic cholecystitis, symptomatic biliary colic. POSTOPERATIVE DIAGNOSIS: Question of gallbladder polyp on ultrasound, question of chronic cholecystitis, symptomatic biliary colic, path pending. PROCEDURE: Laparoscopic cholecystectomy. SURGEON: Dr. Eliot Maguire. ANESTHESIA: General. ESTIMATED BLOOD LOSS: Minimal. INDICATIONS: As noted above. Risks and benefits explained in detail but not limited to and consent obtained. DESCRIPTION OF PROCEDURE AND FINDINGS: The patient was taken to the operating room. General anesthesia induced. Abdomen prepped and draped in the usual sterile fashion. After official time out and no disagreement with planned procedure, a transverse incision made at the supraumbilical area. Fascia grasped and pulled upward. Veress needle inserted and tested with saline. Pneumoperitoneum accomplished insufflating opening pressure of 0-15. An 11 mm bladeless port and camera inserted without difficulty followed by two - 5 mm right upper quadrant ports and 5 mm epigastric port. The gallbladder grasped. It had some chronic inflammatory reaction. Dissection posterior, lateral to anterior fashion. Slowly and carefully cystic duct and infundibular junction slowly and carefully well skeletonized until the critical view obtained both anteriorly and posteriorly. Once this was accomplished cystic duct clipped x3 and divided in usual fashion. It should be noted that there were multiple cystic arterial branches splaying all over the gallbladder. Quite a vascular gallbladder, this required slow careful dissection staying directly on the gallbladder wall clipping these oozing side branches off the cystic artery directly on the gallbladder wall as necessary. Just prior to releasing from final attachments to anterior edge of the liver, the liver bed re-inspected. Clips noted to be in place cystic duct and cystic artery stumps. There were no signs of any active bleeding or bile leakage. It was felt there was no benefit from drain placement. Gallbladder released from final attachments to anterior liver, pulled up into the supraumbilical port site and decompressed of bile, pulled free and passed off. Port replaced. Copious amount of irrigation accomplished lateral to the liver and subhepatic space irrigating until clear. Liver bed re-inspected. Clips noted in place cystic duct and cystic artery stumps. There were no signs of any active bleeding or bile leakage. It was felt there was no benefit in drain placement. Fascial defect 10-11 site closed with puncture closure device with #1 Vicryl. Pneumoperitoneum decompressed. Skin incision closed with 4-0 Vicryl. The wound is irrigated out. Skin incision closed with 4-0 Vicryl. Steri-Strips and sterile dressing applied. 0.25% Marcaine local injected along the skin incision fascial defect. The patient tolerated the procedure well. There were no immediate complications. Findings discussed with the family out in the waiting area.
[2018-10-19] MEDS ORDERED: NORCO 5/325 MG PO PRN (11:59)
[2018-10-19 12:26] VITALS: BP 143/90; PULSE 86; O2SAT 95
== END 2018-10-19 12:38 | disposition home or self-care (01) ==
LOC: SDC 08:54
PROVIDERS: ATTEND Surgery
DX: K81.1 Chronic cholecystitis (principal)
CPT/HCPCS: J0330; J0461; J0694; J1100; J1170; J1885; J2405; J2704; J3010; A9270-GY

== ENCOUNTER 2021-08-14 08:06 | Emergency (ER) | payer MEDICAID ==
[2021-08-14] MEDS ORDERED: Sodium Chloride 0.9% 1000 ML 1,000 ML IV STA (08:23)
[2021-08-14] MEDS ORDERED: Hydromorphone 1 mg/ml Injection IV ONE (08:23)
[2021-08-14] MEDS ORDERED: PROTONIX 40 MG IV IV ONE ×2 (08:23→08:43)
[2021-08-14] MEDS ORDERED: Zofran 4 MG/2 ML VIAL IV ONE (08:23)
--- NOTE | 2021-08-14 08:23 | ERPHSYRPT ---
- History of Present Illness Time Seen by Provider: 08/14/21 08:21 Historian: patient Exam Limitations: no limitations Patient Subjective Stated Complaint: Pt states "I have really bad belly pain. I was passing bright red blood on but now it is really hurting." Triage Nursing Assessment: Pt presented alert and oriented X 3, skin pwd Pt ambu lates with an upright steady gait, able to speak in clear full sentences pt in no apparent respiratory distress. Physician History: This is a 36-year-old white male patient of Dr. Murphy who consumes alcohol nearly daily and smokes tobacco daily who presents with generalized abdominal pain that began worsening 2 days ago and bright red blood per rectum Friday but no rectal bleeding yesterday. Patient states he has chronic intermittent generalized abdominal pain. Patient has had a colonoscopy approximately 2 years ago and there were some benign polyps were present per patient report. Patient has a history of gastroesophageal reflux disease, migraine headaches and hypertension. Because of the abdominal pain and the bright red blood per rectum that occurred yesterday he is here for further evaluation. She states the last time he consumed alcohol was on Friday prior to this evaluation Timing/Duration: day(s) (2 days ago pain became worse), week(s) (Symptoms of generalized abdominal pain have intermittently worsened over the last 2 weeks), worse Activities at Onset: none Quality: aching, cramping Abdominal Pain Onset Location: generalized abdomen Pain Radiation: no radiation Severity of Pain-Max: moderate Severity of Pain-Current: moderate Associated Symptoms: diarrhea, loss of appetite Previous symptoms: same symptoms as today, no recent treatment Allergies/Adverse Reactions: No Known Drug Allergies Allergy (Verified 10/19/18 09:17) Home Medications: Carvedilol [Coreg] 6.25 mg PO DAILY 08/14/21 [History] Lisinopril 20 mg [Zestril 20 MG] 20 mg PO DAILY 08/14/21 [History] PANTOPRAZOLE 40 mg Tablet [Protonix 40MG Tablet] 40 mg PO QAM 08/14/21 [History] Sertraline HCl 100 mg PO DAILY 08/14/21 [History] Hx Tetanus, Diphtheria Vaccination/Date Given: Yes Hx Influenza Vaccination/Date Given: No Hx Pneumococcal Vaccination/Date Given: No Immunizations Up to Date: Yes Travel Risk - International Travel Have you traveled outside of the country in past 3 weeks: No - Coronavirus Screening Are you exhibiting any of the following symptoms?: No Close contact with a COVID-19 positive Pt in past 14-21 Days: No - Vaccine Status Have you recieved a Covid-19 vaccination: Yes Hogshead Stripper: Pfizer - Vaccination Dates Date of 2cond Vaccination (if applicable): 2020 - Review of Systems Constitutional: No Symptoms Eyes: No Symptoms Ears, Nose, & Throat: No Symptoms Respiratory: No Symptoms Cardiac: No Symptoms Abdominal/Gastrointestinal: Abdominal Pain, Hematochezia, Melena, Appetite Changes Genitourinary Symptoms: No Symptoms Musculoskeletal: No Symptoms Skin: No Symptoms Neurological: No Symptoms Psychological: No Symptoms Endocrine: No Symptoms Hematologic/Lymphatic: No Symptoms Immunological/Allergic: No Symptoms All Other Systems: Reviewed and Negative - Past Medical History Pertinent Past Medical History: Yes Neurological History: Migraines ENT History: No Pertinent History Cardiac History: Hypertension Respiratory History: No Pertinent History Endocrine Medical History: Hypoglycemia Musculoskeletal History: Fractures GI Medical History: GERD, Gallbladder Disease History: No Pertinent History Psycho-Social History: Depression Male Reproductive Disorders: No Pertinent History - Past Surgical History Past Surgical History: Yes Neuro Surgical History: No Pertinent History Cardiac: No Pertinent History Respiratory: No Pertinent History Gastrointestinal: No Pertinent History Genitourinary: No Pertinent History Musculoskeletal: Orthopedic Surgery Male Surgical History: No Pertinent History Other Surgical History: right shoulder. EGD - Social History Smoking Status: Current every day smoker How long have you smoked: age 15 Exposure to second hand smoke: Yes Drug Use: none Patient Lives Alone: Yes - Nursing Vital Signs Nursing Vital Signs: Initial Vital Signs Temperature 97.6 F 08/14/21 08:12 Pulse Rate 77 08/14/21 08:12 Respiratory Rate 20 08/14/21 08:12 Blood Pressure 183/108 08/14/21 08:12 O2 Sat by Pulse Oximetry 98 08/14/21 08:12 Pain Scale Pain Intensity 5 - Physical Exam General Appearance: no apparent distress, alert, anxiety Eye Exam: PERRL/EOMI, eyes nml inspection Ears, Nose, Throat Exam: normal ENT inspection, moist mucous membranes Neck Exam: normal inspection, non-tender, supple, full range of motion Respiratory Exam: normal breath sounds, lungs clear, airway intact, No chest tenderness, No respiratory distress Cardiovascular Exam: regular rate/rhythm, normal heart sounds, normal peripheral pulses Gastrointestinal/Abdomen Exam: soft, normal bowel sounds, tenderness (Generalized), guarding (Mild generalized to palpation), No rebound Rectal Exam: not done Back Exam: normal inspection, normal range of motion, No CVA tenderness, No v ertebral tenderness Extremity Exam: normal inspection, normal range of motion, pelvis stable Neurologic Exam: alert, oriented x 3, cooperative, 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, normal mood/affect, nml cerebellar function, nml station & gait, sensation nml Skin Exam: normal color, warm, dry Lymphatic Exam: No adenopathy SpO2 Interpretation: normal SpO2: 98 O2 Delivery: Room Air Ordered Tests: Active Orders 24 hr Category Date Time Status IV Insertion STAT Care 08/14/21 08:23 Active ABDOMEN AND PELVIS W/0 CONTRAS [CT] Stat Exams 08/14/21 08:23 Completed AMYLASE Stat Lab 08/14/21 08:18 Completed CBC W DIFF Stat Lab 08/14/21 08:18 Completed CMP Stat Lab 08/14/21 08:18 Completed ETHYL ALCOHOL Stat Lab 08/14/21 08:18 Completed LIPASE Stat Lab 08/14/21 08:18 Completed UA W/RFX CULTURE Stat Lab 08/14/21 08:26 Completed Medication Summary Discontinued Medications Generic Name Dose Route Start Last Admin Trade Name Alfred PRN Reason Stop Dose Admin Hydromorphone HCl 1 mg 08/14/21 08:23 08/14/21 08:33 Hydromorphone 1 Mg/1ml Inj 1 Mg/Ml Syringe IV 08/14/21 08:24 Not Given STAT ONE Sodium Chloride 1,000 mls @ 999 mls/hr 08/14/21 08:23 08/14/21 08:44 Sodium Chloride 0.9% 1000 Ml IV 08/14/21 09:23 999 mls/hr .Q1H1M STA Administration Sodium Chloride Confirm 08/14/21 08:43 Sodium Chloride 0.9% 1000 Ml Administered 08/14/21 08:44 Dose 1,000 mls @ ud .ROUTE .STK-MED ONE Ondansetron HCl 4 mg 08/14/21 08:23 08/14/21 08:45 Ondansetron Hcl 4 Mg/2 Ml Vial IV 08/14/21 08:24 4 mg STAT ONE Administration Ondansetron HCl Confirm 08/14/21 08:43 Ondansetron Hcl 4 Mg/2 Ml Vial Administered 08/14/21 08:44 Dose 4 mg .ROUTE .K-[facility] ONE Pantoprazole Sodium 40 mg 08/14/21 08:23 08/14/21 08:45 Pantoprazole 40 Mg Vial IV 08/14/21 08:24 40 mg STAT ONE Administration Pantoprazole Sodium Confirm 08/14/21 08:43 Pantoprazole 40 Mg Vial Administered 08/14/21 08:44 Dose 40 mg IV .STK-MED ONE Lab/Rad Data: Laboratory Result Diagrams 08/14/21 08:18 08/14/21 08:18 Laboratory Results 08/14/21 08/14/21 08/14/21 Range/Units 08:26 08:18 08:18 WBC (4.0-10.5) x10^3/uL RBC (4.1-5.6) x10^6/uL Hgb (12.5-18.0) g/dL Hct (42-50) % MCV (78-100) fL MCH (26-32) pg MCHC (32-36) g/dL RDW (11.5-14.0) % Plt Count (150-450) x10^3/uL MPV (7.5-11.0) fL Gran % (36.0-66.0) % Immature Gran % (Auto) (0.00-0.4) % Nucleat RBC Rel Count (0.00-0.1) % Eos # (Auto) (0-0.5) x10^3/uL Immature Gran # (Auto) (0.00-0.03) x10^3u/L Absolute Lymphs (auto) (1.0-4.6) x10^3/uL Absolute Monos (auto) (0.0-1.3) x10^3/uL Absolute Nucleated RBC (0.00-0.01) x10^3u/L Lymphocytes % (24.0-44.0) % Monocytes % (0.0-12.0) % Eosinophils % (0.00-5.0) % Basophils % (0.0-0.4) % Absolute Granulocytes (1.4-6.9) x10^3/uL Basophils # (0-0.4) x10^3/uL Sodium 137 (137-145) mmol/L Potassium 3.8 (3.5-5.1) mmol/L Chloride 104 (98-107) mmol/L Carbon Dioxide 22 (22-30) mmol/L Anion Gap 15.2 H (5-15) MEQ/L BUN 11 (9-20) mg/dL Creatinine 0.64 L (0.66-1.25) mg/dL Estimated GFR > 60.0 ML/MIN Glucose 121 H (74-106) mg/dL Calcium 9.6 (8.4-10.2) mg/dL Total Bilirubin 0.50 (0.2-1.3) mg/dL AST 29 (17-59) U/L ALT 26 (0-50) U/L Alkaline Phosphatase 93 (38-126) U/L Serum Total Protein 7.4 (6.3-8.2) g/dL Albumin 4.4 (3.5-5.0) g/dL Amylase 65 (30-110) U/L Lipase 116 (23-300) U/L Urinalys Dipstick Clnc MAIN LAB Urine Color YELLOW (YELLOW) Urine Appearance CLEAR (CLEAR) Urine pH 5.5 (5-6) Ur Specific [place] >=1.030 (1.005-1.025) POC Urine Protein Conf NEGATIVE (Negative) Urine Ketones NEGATIVE (NEGATIVE) Urine Nitrite NEGATIVE (NEGATIVE) Urine Bilirubin NEGATIVE (NEGATIVE) Urine Urobilinogen 0.2 (0-1) mg/dL Urine Leukocytes NEGATIVE (NEGATIVE) Urine WBC (Auto) NONE (0-5) /HPF Urine RBC (Auto) NONE SEEN (0-2) /HPF U Epithel Cells (Auto) NONE (FEW) /HPF Urine Bacteria (Auto) NONE SEEN (NEGATIVE) /HPF Urine RBC NEGATIVE (0-5) Zi/ul Urine Mucus (Auto) SLIGHT (NEGATIVE) /HPF Ur Culture Indicated? NO Urine Glucose NEGATIVE (NEGATIVE) mg/dL Ethyl Alcohol < 10 (0-10) mg/dL 08/14/21 Range/Units 08:18 WBC 8.6 (4.0-10.5) x10^3/uL RBC 5.52 (4.1-5.6) x10^6/uL Hgb 17.1 (12.5-18.0) g/dL Hct 50.3 H (42-50) % MCV 91.1 (78-100) fL MCH 31.0 (26-32) pg MCHC 34.0 (32-36) g/dL RDW 11.9 (11.5-14.0) % Plt Count 241 (150-450) x10^3/uL MPV 9.8 (7.5-11.0) fL Gran % 60.0 (36.0-66.0) % Immature Gran % (Auto) 0.2 (0.00-0.4) % Nucleat RBC Rel Count 0.0 (0.00-0.1) % Eos # (Auto) 0.22 (0-0.5) x10^3/uL Immature Gran # (Auto) 0.02 (0.00-0.03) x10^3u/L Absolute Lymphs (auto) 2.48 (1.0-4.6) x10^3/uL Absolute Monos (auto) 0.64 (0.0-1.3) x10^3/uL Absolute Nucleated RBC 0.00 (0.00-0.01) x10^3u/L Lymphocytes % 28.9 (24.0-44.0) % Monocytes % 7.5 (0.0-12.0) % Eosinophils % 2.6 (0.00-5.0) % Basophils % 0.8 (0.0-0.4) % Absolute Granulocytes 5.16 (1.4-6.9) x10^3/uL Basophils # 0.07 (0-0.4) x10^3/uL Sodium (137-145) mmol/L Potassium (3.5-5.1) mmol/L Chloride (98-107) mmol/L Carbon Dioxide (22-30) mmol/L Anion Gap (5-15) MEQ/L BUN (9-20) mg/dL Creatinine (0.66-1.25) mg/dL Estimated GFR ML/MIN Glucose (74-106) mg/dL Calcium (8.4-10.2) mg/dL Total Bilirubin (0.2-1.3) mg/dL AST (17-59) U/L ALT (0-50) U/L Alkaline Phosphatase (38-126) U/L Serum Total Protein (6.3-8.2) g/dL Albumin (3.5-5.0) g/dL Amylase (30-110) U/L Lipase (23-300) U/L Urinalys Dipstick Clnc Urine Color (YELLOW) Urine Appearance (CLEAR) Urine pH (5-6) Ur Specific [place] (1.005-1.025) POC Urine Protein Conf (Negative) Urine Ketones (NEGATIVE) Urine Nitrite (NEGATIVE) Urine Bilirubin (NEGATIVE) Urine Urobilinogen (0-1) mg/dL Urine Leukocytes (NEGATIVE) Urine WBC (Auto) (0-5) /HPF Urine RBC (Auto) (0-2) /HPF U Epithel Cells (Auto) (FEW) /HPF Urine Bacteria (Auto) (NEGATIVE) /HPF Urine RBC (0-5) Zi/ul Urine Mucus (Auto) (NEGATIVE) /HPF Ur Culture Indicated? Urine Glucose (NEGATIVE) mg/dL Ethyl Alcohol (0-10) mg/dL - Progress Progress: improved, pain not gone completely Progress Note: 08/14/21 09:10 CAT scan of the abdomen pelvis without contrast shows new hepatomegaly but no other acute findings. Counseled pt/family regarding: lab results, diagnosis, need for follow-up, rad results - Departure Departure Disposition: Home Clinical Impression: Abdominal pain, Rectal bleeding Condition: Stable Critical Care Time: No Referrals: DAVID MURPHY MD [Primary Care Provider] - Follow up/PCP as directed Additional Instructions: Stop consuming alcohol. Drink plenty of nonalcoholic clear liquids. Call Dr. Murphy's office today to make arrangements for follow-up appointment for further evaluation and management. Take your medications as prescribed.
[2021-08-14] MEDS ORDERED: Sodium Chloride 0.9% 1000 ML 1,000 ML ONE (08:43)
[2021-08-14] MEDS ORDERED: Zofran 4 MG/2 ML VIAL ONE (08:43)
[2021-08-14 08:56] LABS: ALBUMIN 4.4 g/dL (3.5-5.0); ALKALINE PHOSPHATASE 93 U/L (38-126); AMYLASE 65 U/L (30-110); ANION GAP 15.2 MEQ/L (5-15); BLOOD UREA NITROGEN 11 mg/dL (9-20); CHLORIDE 104 mmol/L (98-107); Calcium 9.6 mg/dL (8.4-10.2); Carbon Dioxide 22 mmol/L (22-30); Creatinine 1 0.64 mg/dL (0.66-1.25); EST GLOMERULAR FILTRATION RATE > 60.0 ML/MIN; Glucose 121 mg/dL (74-106); LIPASE 116 U/L (23-300); Potassium 3.8 mmol/L (3.5-5.1); SGOT/AST 29 U/L (17-59); SGPT/ALT 26 U/L (0-50); SODIUM 137 mmol/L (137-145); Total Protein 7.4 g/dL (6.3-8.2)
--- NOTE | 2021-08-14 09:08 | XRAY ---
Indication: Abdomen pain and rectal bleeding. Multiple contiguous axial images obtained through the abdomen and pelvis without contrast. Comparison: August 26, 2018. Lung bases remain clear. Heart not enlarged. Noncontrasted stomach and bowel loops nonobstructed with normal appendix. Again mild scattered colonic diverticulosis. Interval cholecystectomy. No free fluid/air. Stable small dense left renal exophytic cyst. Liver is now enlarged measuring 20.9 cm. Remaining liver, pancreas, spleen, adrenal glands, kidneys, ureters, bladder, and aorta are unremarkable for noncontrast exam. Osseous structures intact. Impression: 1. Colonic diverticulosis without diverticulitis and stable left renal cyst. 2. New hepatomegaly. 3. Remaining CT abdomen/pelvis without contrast exam is negative.
[2021-08-14 09:10] LABS: Absolute Neutrophil Ct (ANC) 5.16 x10^3/uL (1.4-6.9); Basophil (Absolute #) 0.07 x10^3/uL (0-0.4); Eosinophil % 2.6 % (0.00-5.0); Eosinophil (Absolute #) 0.22 x10^3/uL (0-0.5); Hematocrit 50.3 % (42-50); Hemoglobin 17.1 g/dL (12.5-18.0); Lymphocyte (Absolute #) 2.48 x10^3/uL (1.0-4.6); Lymphocytes % 28.9 % (24.0-44.0); Mean Cell Volume 91.1 fL (78-100); Mean Platelet Volume 9.8 fL (7.5-11.0); Monocyte (Absolute #) 0.64 x10^3/uL (0.0-1.3); Monocytes % 7.5 % (0.0-12.0); Platelet Count 241 x10^3/uL (150-450); Red Blood Count 5.52 x10^6/uL (4.1-5.6); Red Cell Distribution Width 11.9 % (11.5-14.0); White Blood Count 8.6 x10^3/uL (4.0-10.5)
[2021-08-14 09:19] LABS: Mucus SLIGHT /HPF (NEGATIVE)
[2021-08-14 09:22] LABS: Appearance CLEAR (CLEAR); Bilirubin NEGATIVE (NEGATIVE); Glucose NEGATIVE (NEGATIVE); Ketones NEGATIVE (NEGATIVE); Ph 5.5 (5-6); Protein,Urine Dip NEGATIVE (Negative); RBC NEGATIVE Ery/ul (0-5); Specific Gravity >=1.030 (1.005-1.025)
[2021-08-14 09:23] LABS: Bacteria NONE SEEN /HPF (NEGATIVE); Dipstick done @ ? MAIN LAB; Nitrite NEGATIVE (NEGATIVE); RBC NONE SEEN /HPF (0-2); Urine Cultured Indicated? NO; Urobilinogen 0.2 mg/dL (0-1)
[2021-08-14 10:06] VITALS: BP 121/85; PULSE 71; O2SAT 97
== END 2021-08-14 10:06 | disposition home or self-care (01) ==
LOC: ED 08:06
DX: R10.84 Generalized abdominal pain (principal); K62.5 Hemorrhage of anus and rectum; R19.7 Diarrhea, unspecified; I10 Essential (primary) hypertension; Z72.0 Tobacco use
CPT/HCPCS: 36000; 36415; 74176; 80053; 80307; 81015; 82150; 83690; 85025; 96374; 96375; 99284; J2405; G0480

== ENCOUNTER 2022-05-02 05:52 | Day surgery (SDC) | payer OTHER ==
[2022-05-02] MEDS ORDERED: Lactated Ringers 1,000 ML IV SCH (06:00)
[2022-05-02] MEDS ORDERED: Xylocaine-Mpf 2% 5 Ml Vial ONE (06:35)
[2022-05-02] MEDS ORDERED: DIPRIVAN 200 MG/20 ML IV ONE ×2 (06:35→07:47)
[2022-05-02] MEDS ORDERED: Versed 2 MG/2 ML Injection ONE (07:30)
[2022-05-02] MEDS ORDERED: SUBLIMAZE 100 MCG/2 ML ONE (07:49)
[2022-05-02 08:47] VITALS: BP 140/99; PULSE 85; O2SAT 98
--- NOTE | 2022-05-02 09:22 | OP ---
SURGERY DATE/TIME: 05/02/2022 0732 PREOPERATIVE DIAGNOSIS: Hematochezia. POSTOPERATIVE DIAGNOSIS: Normal colon. PROCEDURE: Diagnostic colonoscopy. SURGEON: Robby Sanchez M.D. ANESTHESIA: MAC by Mauri Carrasco CRNA. ESTIMATED BLOOD LOSS: None. SPECIMENS: None. DESCRIPTION OF PROCEDURE: After informed written consent was obtained, the patient was taken to the endoscopy suite. He was placed in left lateral decubitus position. Anesthesia was titrated to desired level of consciousness. Digital rectal exam showed normal sphincter tone and no internal lesions. The scope was inserted into the rectum and sequentially the entire colonic mucosa was traversed. The level of cecum was reached and verified with direct visualization of the ileocecal valve. Upon withdrawal careful mucosal inspection revealed no gross abnormalities or evidence of bleeding. Prior to withdrawal retroflexion was performed and showed no internal lesions. The scope was removed. The patient was transferred to the recovery room in good condition.
== END 2022-05-02 08:55 | disposition home or self-care (01) ==
LOC: SDC 05:52
PROVIDERS: ATTEND Family Medicine
DX: K92.1 Melena (principal)
CPT/HCPCS: J2250; J2704; J3010

== ENCOUNTER 2023-10-08 22:00 | Emergency (ER) | payer OTHER ==
[2023-10-08 22:18] VITALS: TEMP 97.5; O2SAT 98
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
[2023-10-08 23:08] VITALS: BP 119/74; PULSE 76; RESP 18
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
== END 2023-10-08 23:12 | disposition home or self-care (01) ==
LOC: ED 22:00
DX: S83.511A Sprain of anterior cruciate ligament of right knee, initial encounter (principal); V86.56XA Driver of dirt bike or motor/cross bike injured in nontraffic accident, initial encounter; M25.461 Effusion, right knee; M25.561 Pain in right knee; I10 Essential (primary) hypertension; Z79.899 Other long term (current) drug therapy; Z72.0 Tobacco use
CPT/HCPCS: 73562; 99283; L1830

== ENCOUNTER 2023-10-29 05:53 | Day surgery (SDC) | payer MEDICAID ==
[2023-10-29 06:41] LABS: Hematocrit 53.3 % (40.1-51.0); Hemoglobin 18.4 g/dL (13.7-17.5); Mean Cell Volume 90.5 fL (79.0-92.2); Mean Corpuscular Hemoglobin 31.2 pg (25.7-32.2); Mean Corpuscular Hgb Concent. 34.5 g/dL (32.3-36.5); Mean Platelet Volume 9.5 fL (9.4-12.4); Platelet Count 209 x10^3/uL (163-337); Red Blood Count 5.89 x10^6/uL (4.63-6.08); White Blood Count 10.8 x10^3/uL (4.23-9.07)
[2023-10-29] MEDS: CEFAZOLIN 2 GM/100 ML NaCl 2 GM/100 ML IVPB IV SCH (06:47)
[2023-10-29] MEDS: Lactated Ringers 1,000 ML IV SCH (06:47)
[2023-10-29] MEDS ORDERED: Sensorcaine 0.25% 10 ML ONE (06:52)
[2023-10-29] MEDS ORDERED: Versed 2 MG/2 ML Injection ONE (06:54)
[2023-10-29] MEDS ORDERED: Lactated Ringers 1,000 ML IV ONE (09:04)
[2023-10-29] MEDS ORDERED: Decadron 4 MG INJ ONE (09:29)
[2023-10-29] MEDS ORDERED: ROCURONIUM BROMIDE IV ONE ×2 (09:29→09:31)
[2023-10-29] MEDS ORDERED: Naropin 0.5% 30 ML VIAL ONE (09:29)
[2023-10-29] MEDS ORDERED: Zofran 4 MG/2 ML VIAL ONE (09:29)
[2023-10-29] MEDS ORDERED: DIPRIVAN 200 MG/20 ML IV ONE (09:30)
[2023-10-29] MEDS ORDERED: BRIDION 200MG/2ML IV ONE (10:31)
[2023-10-29] MEDS ORDERED: SUBLIMAZE 100 MCG/2 ML ONE (11:05)
[2023-10-29] MEDS ORDERED: Hydromorphone 1 mg/ml Injection ONE (11:05)
[2023-10-29 11:59] VITALS: RESP 16
[2023-10-29 12:27] VITALS: TEMP 97.8; O2SAT 98
[2023-10-29 12:37] VITALS: BP 133/94; PULSE 78
--- NOTE | 2023-10-30 10:22 | OP ---
SURGERY DATE/TIME: 10/29/2023 0800 - PREOPERATIVE DIAGNOSES: 1) Tear, anterior cruciate ligament, right knee. 2) Tears, medial and lateral menisci, right knee. POSTOPERATIVE DIAGNOSES: 1) Tear, anterior cruciate ligament, right knee. 2) Tears, medial and lateral menisci, right knee. PROCEDURE: Arthroscopy of the right knee with anterior cruciate ligament reconstruction utilizing tibialis allograft, partial medial and lateral meniscectomies. SURGEON: Reyes Valencia II, DO ANESTHESIA: General with block for postop pain control. DESCRIPTION OF PROCEDURE AND FINDINGS: The patient was identified, and informed consent was obtained. The patient was taken to the operative suite where he was placed in the supine position on the operating table where general anesthetic was administered. It should be noted that the block had been administered in the preop holding area. Once an appropriate level of anesthesia had been obtained, a tourniquet was placed high on the right thigh. The right lower extremity was then placed into the knee navarro. The leg was then prepped and draped in the usual sterile fashion. A standard time-out was then taken. Following this, the leg was exsanguinated and the tourniquet was elevated to 350 mmHg. At this point, a standard superomedial portal was created with an 11 blade. Trocar and cannula were placed in the joint, and the joint was distended with the arthroscopic pump. An inferolateral portal was created with an 11 blade. The arthroscope was then placed in through a cannula. An 18-gauge spinal needle identified the level for the inferomedial portal, which was also created with an 11 blade. The knee was then inspected in a systematic fashion. The suprapatellar pouch had no loose bodies or synovial hypertrophy. Gutters were inspected, and no loose bodies or synovial hypertrophy. The patella had no significant chondromalacia except in the very deepest portion of the patella a very small area of fissuring was noted. The patella seated quite nicely in the femoral groove at about 30 degrees of flexion. The scope was placed into the medial compartment where a tear was noted in the posterior horn of the medial meniscus, resected with the handheld biting instruments, and shaved to a smooth transition with the shaver. No significant degenerative changes or chondromalacia were noted on either the medial femoral condyle or tibial plateau. The meniscus was probed on both its upper and undersurfaces after resection and noted to have no evidence of further tearing. Scope was then placed in the lateral compartment where the lateral meniscus was probed throughout its entirety. There was noted to be a small tear in the middle horn of the lateral meniscus, which was resected with the handheld biting instruments, and the edges were then shaved with the shaver giving a nice smooth transition. Again, there were no degenerative or chondromalacia changes noted on the lateral femoral condyle or tibial plateau. The intercondylar notch region was then inspected. The patient had a very large, thickened, hypertrophic fat pad which required some debridement. The intercondylar notch was inspected. The anterior cruciate ligament was noted to be completely torn, and at this point, the stump was then resected with the shaver and the wall was then denuded of soft tissue. At this point, a bur was utilized to perform a notchplasty such that the [id number] position could be visualized on the lateral condyle of the femur. At this point, the [id number] guide was the placed into the joint and rotated 15 degrees medially along the sagittal plane at a 52-degree angle. The guide pin was then placed into the joint, followed by drilling with a #9 drill, as the graft had been previously prepared on the back table and noted to be a #9 graft was the appropriate size. Once this had been drilled and the debris had been removed, the guide was then placed over the back of the femur at [id number] position, rotated down to about 9:30 to 10 o'clock position, and the Beath needle was then advanced through the femur and out the anterolateral thigh. At this point then, the 4.5 drill bit was utilized to drill through the toggle lock and the tunnel was noted to about 60 mm. The mushroom bit was then utilized to drill the femoral tunnel to a 9 mm diameter and a depth of about 33 to 35 mm. The graft was then brought to the table after it had been measured and then was fully inserted and seated such that a good 33 to 35 mm of graft were advanced into the femoral tunnel as had been previously drilled. At this point, the graft was then tensioned. The draw sutures from the toggle lock were then brought out through the inferomedial portal. The nitinol wire was placed through the tibial tunnel such that it could be visualized in the joint, and a 9 x 25 mm interference screw was placed. A good tight fit was noted while advancing the screw. It was fully seated. The joint was then re-cycled, noted to have no evidence of laxity, as there was a negative Leslie and drawer test. The sutures were then all cut, and at this point, excess graft was removed. The small incision on the tibial side was closed with 2-0 Monocryl and 4-0 nylon. The portal sites were all closed with 4-0 nylon. Adaptics, 4 x 4's, and a sterile dressing applied. The patient was then placed into an IROM-type brace with 0 to 90 degrees of flexion allowed. At this point, the patient was transferred to the cart and taken to the recovery room in satisfactory condition, having tolerated the procedure well.
== END 2023-10-29 12:37 | disposition home or self-care (01) ==
LOC: SDC 05:53
PROVIDERS: ATTEND Orthopaedic Surgery
DX: S83.511A Sprain of anterior cruciate ligament of right knee, initial encounter (principal); S83.241A Other tear of medial meniscus, current injury, right knee, initial encounter; S83.281A Other tear of lateral meniscus, current injury, right knee, initial encounter
CPT/HCPCS: 29880; 29888; 36415; 85027; C1713; J0690; J1100; J1170; J2250; J2405; J2704; J2795; J3010

== ENCOUNTER 2024-12-05 00:08 | Emergency (ER) | payer OTHER, SELFPAY ==
[2024-12-05 00:16] VITALS: TEMP 97.5
--- NOTE | 2024-12-05 00:30 | ERPHSYRPT ---
- History of Present Illness Time Seen by Provider: 12/05/24 00:25 Source: patient, family Exam Limitations: no limitations Physician History: Pt had onset of dizziness and left sided headache today and hx migraine before but not lateralized before. no facial sym. no pronator drift. abd soft nontender without peritoneal sign. some nausea Discussed with pt and available family risks and benefits of testing/Tx including CBC, CMP, EKG, Trop, BNP, D-dimer, UA,, CT head, CXR, swabs for Covid, RSV, Flu pain med, and they wish to proceed so these are ordered. Results discussed with pt and available family Pt and family were advised of the limitations of the testing and Tx performed today in this setting and that we have not yet determined a precise cause for their symptoms and there still could be additional pathology of a serious nature evolving undetected. They voice their understanding and wish to choose outpatient f/u rather than further testing in ER or admission to hospital or transfer at this time and they have the capacity to make this choice. Timing/Duration: today Severity: moderate Associated Symptoms: nausea, headaches, No chest pain, No fever Allergies/Adverse Reactions: No Known Drug Allergies Allergy (Verified 12/05/24 00:17) Home Medications: PANTOPRAZOLE 40 mg Tablet [Protonix 40MG Tablet] 40 mg PO QAM 08/14/21 [History] Sertraline HCl 150 mg PO DAILY 08/14/21 [History] carvediloL [Coreg] 6.25 mg PO BID 08/14/21 [History] Lisinopril/Hydrochlorothiazide [Lisinopril-Hctz 20-12.5 mg Tab] 1 each PO DAILY 10/08/23 [History] Dicyclomine HCl 20 mg [Bentyl 20 mg] 1 tab PO TID PRN PRN 12/05/24 [History] Hx Tetanus, Diphtheria Vaccination/Date Given: Yes Hx Influenza Vaccination/Date Given: No Hx Pneumococcal Vaccination/Date Given: No Travel Risk - Emerging Infectious Disease Are you exhibiting symptoms associated with any current EIDs: No - Review of Systems Constitutional: No Fever, No Chills Eyes: No Symptoms Ears, Nose, & Throat: No Symptoms Respiratory: No Cough, No Dyspnea Cardiac: No Chest Pain, No Edema, No Syncope Abdominal/Gastrointestinal: Nausea, No Abdominal Pain, No Vomiting, No Diarrhea Genitourinary Symptoms: No Dysuria Musculoskeletal: No Back Pain, No Neck Pain Skin: No Rash Neurological: Dizziness, Headache, No Focal Weakness, No Sensory Changes Psychological: No Symptoms Endocrine: No Symptoms Hematologic/Lymphatic: No Symptoms Immunological/Allergic: No Symptoms All Other Systems: Reviewed and Negative - Past Medical History Pertinent Past Medical History: Yes Neurological History: No Pertinent History Cardiac History: Hypertension Respiratory History: No Pertinent History Endocrine Medical History: No Pertinent History Musculoskeletal History: No Pertinent History Other Medical History: PSH: GALL BLADDER, SHOULDER SURGERY. PMH:NONE - Past Surgical History Past Surgical History: Yes Neuro Surgical History: No Pertinent History Cardiac: No Pertinent History Respiratory: No Pertinent History Gastrointestinal: Cholecystectomy Genitourinary: No Pertinent History Musculoskeletal: Orthopedic Surgery Male Surgical History: No Pertinent History Other Surgical History: right shoulder. EGD colonoscopy - Social History Drug Use: none - Social Determinants of Health Will the patient participate in the screening: Declined to provide - Nursing Vital Signs Nursing Vital Signs: Initial Vital Signs Temperature 97.5 F 12/05/24 00:13 Pulse Rate 76 12/05/24 00:13 Respiratory Rate 18 12/05/24 00:13 Blood Pressure 160/102 12/05/24 00:13 O2 Sat by Pulse Oximetry 99 12/05/24 00:13 Pain Scale Pain Intensity 4 - Physical Exam General Appearance: no apparent distress, alert Eye Exam: PERRL/EOMI, eyes nml inspection Ears, Nose, Throat Exam: normal ENT inspection, TMs normal, pharynx normal, moist mucous membranes Neck Exam: normal inspection, non-tender, supple, full range of motion Respiratory Exam: normal breath sounds, lungs clear, No respiratory distress Cardiovascular Exam: regular rate/rhythm, normal heart sounds, normal peripheral pulses Gastrointestinal/Abdomen Exam: soft, normal bowel sounds, No tenderness, No mass Rectal Exam: deferred Back Exam: normal inspection, normal range of motion, No CVA tenderness, No vertebral tenderness Extremity Exam: normal inspection, normal range of motion, pelvis stable Neurologic Exam: alert, oriented x 3, cooperative, normal mood/affect, nml cerebellar function, nml station & gait, sensation nml, No motor deficits Skin Exam: normal color, warm, dry, No rash Lymphatic Exam: No adenopathy SpO2 Interpretation: normal SpO2: 99 O2 Delivery: Room Air - Course Nursing assessment & vital signs reviewed: Yes EKG Interpreted by Me: Sinus Rhythm, Left [place] Deviation, LAFB, NORMAL INTERVALS, Non-specific ST Changes, Other (early repol) - CT Exams Head CT Interpretation: Tele-radiologist Report, No/Intracranial Hemorrhag, Other (normal CTA normal vessels) Soft Tissue Neck CT Interpretation: Tele-radiologist Report, Other (NOrmal vessels) Ordered Tests: Active Orders 24 hr Category Date Time Status EKG-ER Only STAT Care 12/05/24 00:31 Active IV Insertion STAT Care 12/05/24 00:[address] ANGIOGRAPHY NECK [CT] Stat Exams 12/05/24 03:02 Completed CTA HEAD W AND/OR WO CONTRAST [CT] Stat Exams 12/05/24 03:16 Completed HEAD WITHOUT CONTRAST [CT] Stat Exams 12/05/24 00:33 Taken AMYLASE Stat Lab 12/05/24 00:54 Completed CBC W DIFF Stat Lab 12/05/24 00:54 Completed CMP Stat Lab 12/05/24 00:54 Completed D-DIMER QUANTITATIVE Stat Lab 12/05/24 00:54 Completed LIPASE Stat Lab 12/05/24 00:54 Completed Lactic Acid Stat Lab 12/05/24 01:03 Completed Lactic Acid Stat Lab 12/05/24 03:13 Completed TROPONIN Q4H Lab 12/05/24 00:54 Completed TROPONIN Q4H Lab 12/05/24 05:08 Received TROPONIN Q4H Lab 12/05/24 08:45 Ordered UA W/RFX UR CULTURE Stat Lab 12/05/24 02:40 Completed Medication Summary Discontinued Medications Generic Name Dose Route Start Last Admin Trade Name Freq PRN Reason Stop Dose Admin Diphenhydramine HCl 25 mg 12/05/24 00:35 12/05/24 01:05 Diphenhydramine Hcl 50 Mg/Ml Vial IV 12/05/24 00:36 25 mg STAT ONE Administration Diphenhydramine HCl Confirm 12/05/24 00:53 Diphenhydramine Hcl 50 Mg/Ml Vial Administered 12/05/24 00:54 Dose 50 mg .ROUTE .STK-MED ONE Hydromorphone HCl 1 mg 12/05/24 04:01 12/05/24 04:05 Hydromorphone 1 Mg/1ml Inj IV 12/05/24 04:02 1 mg STAT ONE Administration Hydromorphone HCl Confirm 12/05/24 04:04 Hydromorphone 1 Mg/1ml Inj Administered 12/05/24 04:05 Dose 1 mg .ROUTE .STK-MED ONE Sodium Chloride 1,000 mls @ 999 mls/hr 12/05/24 00:31 12/05/24 02:26 Sodium Chloride 0.9% 1000 Ml IV 12/05/24 01:31 Infused .Q1H1M STA Infusion Sodium Chloride Confirm 12/05/24 00:54 Sodium Chloride 0.9% 1000 Ml Administered 12/05/24 00:55 Dose 1,000 mls @ ud .ROUTE .STK-MED ONE Ketorolac Tromethamine 30 mg 12/05/24 00:36 12/05/24 01:04 Ketorolac Tromethamine 30 Mg/Ml Inj IV 12/05/24 00:37 30 mg STAT ONE Administration Ketorolac Tromethamine Confirm 12/05/24 00:53 Ketorolac Tromethamine 30 Mg/Ml Inj Administered 12/05/24 00:54 Dose 30 mg .ROUTE .STK-MED ONE Ondansetron HCl 4 mg 12/05/24 00:31 12/05/24 01:04 Ondansetron Hcl 4 Mg/2 Ml Vial IV 12/05/24 00:32 4 mg STAT ONE Administration Ondansetron HCl Confirm 12/05/24 00:53 Ondansetron Hcl 4 Mg/2 Ml Vial Administered 12/05/24 00:54 Dose 4 mg .ROUTE .STK-MED ONE Lab/Rad Data: Laboratory Result Diagrams 12/05/24 00:54 12/05/24 00:54 Laboratory Results 12/05/24 12/05/24 12/05/24 Range/Units 03:13 02:40 01:03 WBC (4.23-9.07) x10^3/uL RBC (4.63-6.08) x10^6/uL Hgb (13.7-17.5) g/dL Hct (40.1-51.0) % MCV (79.0-92.2) fL MCH (25.7-32.2) pg MCHC (32.3-36.5) g/dL RDW (11.6-14.4) % Plt Count (163-337) x10^3/uL MPV (9.4-12.4) fL Gran % (34.0-67.9) % Immature Gran % (Auto) (0.001-0.429) % Nucleat RBC Rel Count (0.00-0.2) % Eos # (Auto) (0.04-0.54) x10^3/uL Immature Gran # (Auto) (0.001-0.031) x10^3u/L Absolute Lymphs (auto) (1.32-3.57) x10^3/uL Absolute Monos (auto) (0.30-0.82) x10^3/uL Absolute Nucleated RBC (0.00-0.012) x10^3u/L Lymphocytes % (21.8-53.1) % Monocytes % (5.3-12.2) % Eosinophils % (0.8-7.0) % Basophils % (0.2-1.2) % Absolute Granulocytes (1.78-5.38) x10^3/uL Basophils # (0.01-0.08) x10^3/uL D-Dimer (0.0-0.50) mg/L Sodium (135-145) mmol/L Potassium (3.5-5.1) mmol/L Chloride (98-107) mmol/L Carbon Dioxide (22-30) mmol/L Anion Gap (5-15) MEQ/L BUN (9-20) mg/dL Creatinine (0.66-1.25) mg/dL Estimated GFR ML/MIN Glucose (74-106) mg/dL Lactic Acid 1.1 2.4 H (0.4-2.0) Calcium (8.4-10.2) mg/dL Total Bilirubin (0.2-1.3) mg/dL AST (17-59) U/L ALT (0-50) U/L Alkaline Phosphatase (38-126) U/L Troponin I (0.000-0.033) ng/mL Serum Total Protein (6.3-8.2) g/dL Albumin (3.5-5.0) g/dL Amylase (30-110) U/L Lipase (23-300) U/L Urine Color Yellow (Yellow) Urine Appearance Clear (Clear) Urine pH 6.0 (4.6-8.0) Ur Specific Festus 1.020 (1.005-1.030) Urine Protein Negative (Negative) Urine Glucose (UA) Negative (Negative) mg/dL Urine Ketones Negative (Negative) Urine Blood Negative (Negative) Urine Nitrite Negative (Negative) Urine Bilirubin Negative (Negative) Urine Urobilinogen 1.0 A (0.2) mg/dL Ur Leukocyte Esterase Negative (Negative) U Hyaline Cast (Auto) NONE SEEN (0-2) /LPF Urine Microscopic RBC 0-2 (0-5) /HPF Urine Microscopic WBC 0-2 (0-5) /HPF Ur Epithelial Cells None Seen (None Seen) /HPF Urine Bacteria None Seen (None Seen) /HPF Urine Culture Reflexed NO (NO) 12/05/24 12/05/24 12/05/24 Range/Units 00:54 00:54 00:54 WBC (4.23-9.07) x10^3/uL RBC (4.63-6.08) x10^6/uL Hgb (13.7-17.5) g/dL Hct (40.1-51.0) % MCV (79.0-92.2) fL MCH (25.7-32.2) pg MCHC (32.3-36.5) g/dL RDW (11.6-14.4) % Plt Count (163-337) x10^3/uL MPV (9.4-12.4) fL Gran % (34.0-67.9) % Immature Gran % (Auto) (0.001-0.429) % Nucleat RBC Rel Count (0.00-0.2) % Eos # (Auto) (0.04-0.54) x10^3/uL Immature Gran # (Auto) (0.001-0.031) x10^3u/L Absolute Lymphs (auto) (1.32-3.57) x10^3/uL Absolute Monos (auto) (0.30-0.82) x10^3/uL Absolute Nucleated RBC (0.00-0.012) x10^3u/L Lymphocytes % (21.8-53.1) % Monocytes % (5.3-12.2) % Eosinophils % (0.8-7.0) % Basophils % (0.2-1.2) % Absolute Granulocytes (1.78-5.38) x10^3/uL Basophils # (0.01-0.08) x10^3/uL D-Dimer < 0.19 (0.0-0.50) mg/L Sodium 137 (135-145) mmol/L Potassium 3.5 (3.5-5.1) mmol/L Chloride 105 (98-107) mmol/L Carbon Dioxide 22 (22-30) mmol/L Anion Gap 12.9 (5-15) MEQ/L BUN 13 (9-20) mg/dL Creatinine 0.77 (0.66-1.25) mg/dL Estimated GFR 116.1 ML/MIN Glucose 106 (74-106) mg/dL Lactic Acid (0.4-2.0) Calcium 9.2 (8.4-10.2) mg/dL Total Bilirubin 0.20 (0.2-1.3) mg/dL AST 29 (17-59) U/L ALT 28 (0-50) U/L Alkaline Phosphatase 88 (38-126) U/L Troponin I < 0.012 (0.000-0.033) ng/mL Serum Total Protein 6.7 (6.3-8.2) g/dL Albumin 4.2 (3.5-5.0) g/dL Amylase 65 (30-110) U/L Lipase 139 (23-300) U/L Urine Color (Yellow) Urine Appearance (Clear) Urine pH (4.6-8.0) Ur Specific [place] (1.005-1.030) Urine Protein (Negative) Urine Glucose (UA) (Negative) mg/dL Urine Ketones (Negative) Urine Blood (Negative) Urine Nitrite (Negative) Urine Bilirubin (Negative) Urine Urobilinogen (0.2) mg/dL Ur Leukocyte Esterase (Negative) U Hyaline Cast (Auto) (0-2) /LPF Urine Microscopic RBC (0-5) /HPF Urine Microscopic WBC (0-5) /HPF Ur Epithelial Cells (None Seen) /HPF Urine Bacteria (None Seen) /HPF Urine Culture Reflexed (NO) 12/05/24 Range/Units 00:54 WBC 12.4 H (4.23-9.07) x10^3/uL RBC 5.11 (4.63-6.08) x10^6/uL Hgb 16.4 (13.7-17.5) g/dL Hct 47.0 (40.1-51.0) % MCV 92.0 (79.0-92.2) fL MCH 32.1 (25.7-32.2) pg MCHC 34.9 (32.3-36.5) g/dL RDW 11.7 (11.6-14.4) % Plt Count 209 (163-337) x10^3/uL MPV 9.3 L (9.4-12.4) fL Gran % 58.9 (34.0-67.9) % Immature Gran % (Auto) 0.2 (0.001-0.429) % Nucleat RBC Rel Count 0.0 (0.00-0.2) % Eos # (Auto) 0.37 (0.04-0.54) x10^3/uL Immature Gran # (Auto) 0.03 (0.001-0.031) x10^3u/L Absolute Lymphs (auto) 3.64 H (1.32-3.57) x10^3/uL Absolute Monos (auto) 0.98 H (0.30-0.82) x10^3/uL Absolute Nucleated RBC 0.00 (0.00-0.012) x10^3u/L Lymphocytes % 29.4 (21.8-53.1) % Monocytes % 7.9 (5.3-12.2) % Eosinophils % 3.0 (0.8-7.0) % Basophils % 0.6 (0.2-1.2) % Absolute Granulocytes 7.29 H (1.78-5.38) x10^3/uL Basophils # 0.08 (0.01-0.08) x10^3/uL D-Dimer (0.0-0.50) mg/L Sodium (135-145) mmol/L Potassium (3.5-5.1) mmol/L Chloride (98-107) mmol/L Carbon Dioxide (22-30) mmol/L Anion Gap (5-15) MEQ/L BUN (9-20) mg/dL Creatinine (0.66-1.25) mg/dL Estimated GFR ML/MIN Glucose (74-106) mg/dL Lactic Acid (0.4-2.0) Calcium (8.4-10.2) mg/dL Total Bilirubin (0.2-1.3) mg/dL AST (17-59) U/L ALT (0-50) U/L Alkaline Phosphatase (38-126) U/L Troponin I (0.000-0.033) ng/mL Serum Total Protein (6.3-8.2) g/dL Albumin (3.5-5.0) g/dL Amylase (30-110) U/L Lipase (23-300) U/L Urine Color (Yellow) Urine Appearance (Clear) Urine pH (4.6-8.0) Ur Specific [place] (1.005-1.030) Urine Protein (Negative) Urine Glucose (UA) (Negative) mg/dL Urine Ketones (Negative) Urine Blood (Negative) Urine Nitrite (Negative) Urine Bilirubin (Negative) Urine Urobilinogen (0.2) mg/dL Ur Leukocyte Esterase (Negative) U Hyaline Cast (Auto) (0-2) /LPF Urine Microscopic RBC (0-5) /HPF Urine Microscopic WBC (0-5) /HPF Ur Epithelial Cells (None Seen) /HPF Urine Bacteria (None Seen) /HPF Urine Culture Reflexed (NO) - Progress Progress: improved, re-examined Progress Note: 12/05/24 05:48 pt and family are advised of the limitations of testing performed and that even with these negative results there still could be other undetected pathology evolving of a serious nature. THey wish DC and outpt f/u rather than further w/u in ER or admission at this time and have the capacity to make this choice. 12/05/24 05:54 symptoms have nearly resolved now and pt wishes to go home. Counseled pt/family regarding: lab results, diagnosis, need for follow-up, rad results Medical Desision Making - Independent Historian Additional History obtained from: Family - Discussion of managment Reviewed:: Test results, Need for additional workup Agreed on:: Treatment plan, need for follow-up - Diagnostic Testing Diagnostic test were ordered, analyzed, and reviewed by me: Yes Radiological Interpretation: Teleradiologist Report - Risk of complications The pt has a mod risk of morbidity or mortality based on: Need for prescription drug management The pt has a high risk of morbidity or mortality based on: Decision regarding hospitilization or escalation of hosp level of care - Departure Departure Disposition: Home Clinical Impression: headache and dizziness Condition: Good Critical Care Time: No Referrals: DAVID MURPHY MD [Primary Care Provider, [facility]] - Follow up/PCP as directed Instructions: Dizziness, Nonvertigo, (DC), Headache in adults - ED discharge instructions Additional Instructions: Although the CT scans and other tests we have performed have not found serious problems , there still could be conditions developing , so it is important to followup with your Drs to complete the workup and return meantime if there are any symptoms of concern.
[2024-12-05] MEDS ORDERED: BENADRYL 50 MG/ML ONE (00:53)
[2024-12-05] MEDS ORDERED: Zofran 4 MG/2 ML VIAL ONE (00:53)
[2024-12-05] MEDS ORDERED: TORAdol 30 mg Injection ONE (00:53)
[2024-12-05 00:55] LABS: BASOPHIL % 0.6 % (0.2-1.2); Basophil (Absolute #) 0.08 x10^3/uL (0.01-0.08); Eosinophil (Absolute #) 0.37 x10^3/uL (0.04-0.54); Hematocrit 47.0 % (40.1-51.0); Hemoglobin 16.4 g/dL (13.7-17.5); IMMATURE GRAN # 0.03 x10^3u/L (0.001-0.031); IMMATURE GRAN % 0.2 % (0.001-0.429); Lymphocyte (Absolute #) 3.64 x10^3/uL (1.32-3.57); Mean Corpuscular Hemoglobin 32.1 pg (25.7-32.2); Mean Corpuscular Hgb Concent. 34.9 g/dL (32.3-36.5); Monocyte (Absolute #) 0.98 x10^3/uL (0.30-0.82); NUCLEATED RBC # 0.00 x10^3u/L (0.00-0.012); NUCLEATED RBC % 0.0 % (0.00-0.2); Platelet Count 209 x10^3/uL (163-337); Red Blood Count 5.11 x10^6/uL (4.63-6.08); White Blood Count 12.4 x10^3/uL (4.23-9.07)
[2024-12-05] MEDS: Zofran 4 MG/2 ML VIAL IV ONE (01:04)
[2024-12-05] MEDS: TORAdol 30 mg Injection IV ONE (01:04)
[2024-12-05] MEDS: BENADRYL 50 MG/ML IV ONE (01:05)
[2024-12-05 02:13] LABS: Calcium 9.2 mg/dL (8.4-10.2); Carbon Dioxide 22.0 mmol/L (22-30); Creatinine 1 0.77 mg/dL (0.66-1.25); EST GLOMERULAR FILTRATION RATE 116.1 ML/MIN; Glucose 106.0 mg/dL (74-106); Potassium 3.5 mmol/L (3.5-5.1); SGOT/AST 29.0 U/L (17-59); SGPT/ALT 28.0 U/L (0-50); Total Protein 6.7 g/dL (6.3-8.2)
[2024-12-05 04:02] LABS: Glucose, Urine Negative (Negative); Protein,Urine Dip Negative (Negative); RBC 0-2 /HPF (0-5); WBC 0-2 /HPF (0-5)
[2024-12-05] MEDS ORDERED: Hydromorphone 1 mg/ml Injection ONE (04:04)
[2024-12-05] MEDS: Hydromorphone 1 mg/ml Injection IV ONE (04:05)
--- NOTE | 2024-12-05 05:13 | XRAY ---
CLINICAL HISTORY: CTA Head and Neck COMPARISON: No previous studies are available for comparison. TECHNIQUE: CT angiography of the head and neck was performed following the intravenous administration of 100 cc of Isovue 370 of iodinated contrast material. Axial images were obtained from the aortic arch to the vertex. Coronal and sagittal reformatted images were also reviewed. One of the following dose reduction techniques was utilized for this examination: automated exposure control, adjustment of the mA and/or kV according to patient size, or use of iterative reconstruction. One of these 3D techniques was utilized: maximum intensity pixel (MIP), 3D reconstructed images, volume rendered images, or surface shaded rendering. FINDINGS: Carotid Arteries: The common, internal, and external carotid arteries are patent bilaterally, with no evidence of significant stenosis, aneurysm, or dissection. There is no evidence of atherosclerotic plaque causing significant luminal narrowing. Vertebral Arteries: The vertebral arteries are patent bilaterally, with no evidence of significant stenosis, aneurysm, or dissection. Thyroid Gland: The thyroid gland is normal in size and appearance, with no focal lesions. Lymph Nodes: There is no evidence of significant lymphadenopathy in the neck. Soft Tissues: The soft tissues of the neck are unremarkable, with no evidence of masses or abnormal collections. Additional Findings: No other significant findings are noted. IMPRESSION: 1. Normal CT angiography of the head and neck. 2. No evidence of significant vascular abnormalities, acute infarct, or hemorrhage. Electronically Signed by: Elmer Neil MD. (12/05/2024 05:12:39 EDT)
--- NOTE | 2024-12-05 05:13 | XRAY ---
CLINICAL HISTORY: [facility] COMPARISON: No previous studies are available for comparison. TECHNIQUE: CT angiography of the head was performed following the intravenous administration of 100 cc of Isovue 370 iodinated contrast material. Contiguous axial images were obtained from the base of the skull to the vertex. Coronal and sagittal reformatted images were also reviewed. One of the following 3D techniques was utilized: Maximum Intensity Pixel (MIP), 3D Reconstructed Images, Volume Rendered Images, or Surface Shaded Rendering. One of the following dose reduction techniques was utilized for this exam: automated exposure control, adjustment of the mA and/or kV according to patient size, and use of iterative reconstruction. FINDINGS: Intracranial arteries: The intracranial arteries, including the anterior cerebral arteries, middle cerebral arteries, posterior cerebral arteries, basilar artery, and vertebral arteries, are all patent without evidence of significant stenosis, aneurysm, or dissection. There is no evidence of vascular malformations. [place]: The [place] is intact, with no anatomical variations or abnormalities noted. All segments are well visualized and normal in appearance. Venous system: The visualized portions of the venous system, including the dural venous sinuses, are patent with no evidence of thrombosis. Brain parenchyma: The brain parenchyma shows no evidence of acute infarct, hemorrhage, or mass effect. The ventricles and sulci are normal in size and configuration. Bones: The bony structures of the skull are intact without evidence of fracture or destructive lesions. Soft tissues: The visualized soft tissues of the head are unremarkable. Additional findings: No other significant findings are noted. IMPRESSION: Normal CT angiography of the head. No evidence of significant vascular abnormalities, acute infarct, or hemorrhage. Electronically Signed by: Elmer Neil MD. (12/05/2024 05:12:12 EDT)
[2024-12-05 06:05] VITALS: BP 118/82; PULSE 72; RESP 16; O2SAT 95
--- NOTE | 2024-12-06 13:10 | XRAY ---
Indication: Headache and dizziness. Multiple contiguous axial images obtained through the head without contrast. Comparison: August 03, 2018 Normal appearing brain parenchyma, ventricles, and bony calvarium. Visualized paranasal sinuses and mastoid air cells are clear. Impression: Continued normal CT head without contrast exam.
== END 2024-12-05 06:05 | disposition home or self-care (01) ==
LOC: ED 00:08
DX: R42 Dizziness and giddiness (principal); R51.9 Headache, unspecified; I10 Essential (primary) hypertension; Z79.899 Other long term (current) drug therapy